=== PATIENT | female | born 1935 | race Caucasian/White ===

== ENCOUNTER 2018-07-07 13:50 | Inpatient (IN) | payer MEDICARE ==
[~2018-07-07] VITALS: Ht 165.1 cm; Wt 90.3 kg
[2018-07-07] VITALS (9 sets, daily range): BP systolic 127–165; BP diastolic 40–80
--- NOTE | ~2018-07-07 | OP ---
PATIENT NAME: ANNE MARIE PAK MEDICAL RECORD: [id number] :37 LOCATION:D.[facility]0 ADMISSION DATE:07/07/18 SURGEON: GALEN EDMOND DO DATE OF OPERATION: 07/08/2018 PROCEDURE PERFORMED: Right rishabh hip arthroplasty. PREOPERATIVE DIAGNOSIS: Displaced right femoral neck fracture. POSTOPERATIVE DIAGNOSIS: Displaced right femoral neck fracture. INDICATIONS: Ms. Pak is an 82-year-old female who fell yesterday in a parking lot at [employer] avoiding a wasp sting. She fell onto her right side and sustained a right hip fracture. She was seen in the ER. I saw her there and explained to her the risks and benefits of doing nothing versus a rishabh hip arthroplasty. She was more excited about doing the rishabh hip arthroplasty than nothing. She was informed of the risks of infection, bleeding, fracture of the femur, need for further surgery, and even . 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 She is on Coumadin, which was reversed with vitamin K and fresh frozen plasma and I told her the risk would be elevated due to the fact she had hip surgery. The patient was aware of all those risks and benefits and consented to the procedure. SURGEON: Galen Edmond DO DESCRIPTION OF PROCEDURE: The patient was taken to the operative suite, laid in supine position, given general anesthetic, given 2 grams Ancef preoperatively and the patient was placed onto the [place] table. The right hip was prepped and draped in sterile fashion. Timeout was performed, everyone was in agreement with the correct side, site, patient and procedure. Once this was done and prep and drape, incision began over the tensor fascia dhara muscle and dissection was down to the tensor fascia dhara fascia. This was divided. The fascia was taken anterior, the muscle belly posteriorly and then the junction in the next layer down to the rectus was opened through the fascia and the rectus was taken medially, tensor fascia dhara laterally. The ascending branch of lateral femoral circumflex was then tied off and coagulated with the Aquamantys and then cut, it was not bleeding. The Aquamantys was used to coagulate any vessels of any bleeding throughout this whole case. The neck of the femur was then exposed with Homans on either side of it and the capsule was opened up. Blood from the fracture was then suctioned out of the wound. Once the capsule was opened, it was tagged and then a neck cut was made. Once the Homans removed inside the capsule around the neck, neck cut was made and the femoral head was removed. Ligamentum teres was then removed and coagulated with an Aquamantys. The head size was 47. The femur was then exposed and a canal finder was used and the cookie cutter was used to open the canal. Once broaching began due to the body habitus, I had to do with the smaller stems of a taper lock. We broached up to a 13, trialed a -3 neck. This seemed to be a touch long on the x-ray. We put the 13 stem down and then trialed a -6, seemed to fit very well and be equal lengths with the other side on the x-ray. This was then removed and the actual implant was put into place. Irrigation was done thoroughly throughout the procedure with normal saline with Ancef. The capsule was then closed and the vancomycin powder was put into the deep wound as well as Surgicel beads. Then, the tensor fascia dhara fascia was closed with [id number] and running locking stitch with #1 Vicryl and again vancomycin powder and Surgicel beads were placed in that layer. The skin was then closed. This was after being OPERATIVE REPORT [id number] ANNE MARIE PAK irrigated. The skin was then closed with 2-0 Vicryl and 4-0 Monocryl ran on the skin and then Prineo Dermabond dressing was placed on the skin with Telfa and Tegaderm on the skin on the Prineo. The patient was then awakened and taken to recovery in stable condition. Blood loss was 200 mL approximately. Complications were none. TRANSINT:[id number] Voice Confirmation ID: [id number] DOCUMENT ID: [id number] GALEN EDMOND DO at 0722 CC: [id number] DICTATION DATE: 07/08/18 1649 NUCLEAR REACTOR OPERATOR: 07/09/18 0123 [facility] IN [facility] [address] [id number]
[2018-07-07] MEDS ORDERED: COUMADIN3 MG PO (13:57)
[2018-07-07] MEDS ORDERED: HYDROCHLOROTH12.5 M1 PO (14:01)
[2018-07-07] MEDS ORDERED: OXYBUTYNIN CHLOR5 MG PO (14:01)
[2018-07-07] MEDS ORDERED: MOBIC7.5 MG PO (14:01)
[2018-07-07] MEDS ORDERED: DESERYL50 M2 PO (14:01)
[2018-07-07] MEDS ORDERED: PROZAC40 MG PO (14:01)
[2018-07-07] MEDS ORDERED: FOLATE0.4 MG PO (14:01)
[2018-07-07] MEDS ORDERED: ZOCOR40 MG PO (14:02)
[2018-07-07 16:07] LABS: BASOPHILS 0.1 % (0-2); EOSINOPHILS 0.3 % (0-7); HEMOGLOBIN 14.9 g/dL (12-16); IMMATURE GRANULOCYTES 0.3 % (0-5); LYMPHOCYTES 3.8 % (15-50); MCH 31.2 pg (26.0-34.0); MCHC 32.4 g/dL (31.0-37.0); MCV 96.2 fL (80.0-100.0); MEAN PLATELET VOLUME 10.2 fL (7.4-10.4); MONOCYTES 3.9 % (2-11); NEUTROPHILS 91.6 % (40-80); RBC 4.78 10x6/uL (4.00-5.40); RDW 14.9 % (11.5-14.5); WBC 18.2 10x3/uL (4.8-10.8)
[2018-07-07 16:09] LABS: PLATELET COUNT 227 10x3/uL (130-400)
[2018-07-07 16:19] LABS: INR 1.73 (0.85-1.17); PROTIME 19.7 SECONDS (11.6-15.0)
[2018-07-07 16:25] LABS: ALBUMIN 2.9 g/dL (3.4-5.0); ANION GAP 10.3 mmol/L (8-16); BILIRUBIN - TOTAL 0.3 mg/dL (0.2-1.3); CALCIUM 8.9 mg/dL (8.5-10.1); CARBON DIOXIDE 31.7 mmol/L (21.0-32.0); CREATININE - SERUM 1.3 mg/dL (0.6-1.3); PROTEIN - SERUM 7.1 g/dL (6.4-8.2)
[2018-07-08] VITALS (11 sets, daily range): BP systolic 103–136; BP diastolic 40–72; BMI 33.3
[2018-07-08 06:52] LABS: INR 1.79 (0.85-1.17); PROTIME 20.3 SECONDS (11.6-15.0)
[2018-07-08 12:00] LABS: INR 1.48 (0.85-1.17); PROTIME 17.4 SECONDS (11.6-15.0)
[2018-07-09 00:15] VITALS: BP 118/67
[2018-07-09 04:44] VITALS: BP 129/66
[2018-07-09 07:12] LABS: ANION GAP 13.5 mmol/L (8-16); CARBON DIOXIDE 24.5 mmol/L (21.0-32.0); CREATININE - SERUM 1.3 mg/dL (0.6-1.3)
[2018-07-09 07:17] LABS: BASOPHILS 0.2 % (0-2); EOSINOPHILS 1.1 % (0-7); IMMATURE GRANULOCYTES 0.3 % (0-5); LYMPHOCYTES 6.7 % (15-50); MCH 30.5 pg (26.0-34.0); MCHC 31.4 g/dL (31.0-37.0); MCV 97.4 fL (80.0-100.0); MEAN PLATELET VOLUME 10.4 fL (7.4-10.4); MONOCYTES 5.1 % (2-11); NEUTROPHILS 86.6 % (40-80); RDW 15.5 % (11.5-14.5)
[2018-07-09 07:18] LABS: HEMOGLOBIN 11.6 g/dL (12-16); PLATELET COUNT 159 10x3/uL (130-400); WBC 10.9 10x3/uL (4.8-10.8)
[2018-07-09 07:31] LABS: CALCIUM 6.9 mg/dL (8.5-10.1)
[2018-07-09 08:08] VITALS: BP 110/61
[2018-07-09 12:12] VITALS: BP 116/45
[2018-07-09 12:28] VITALS: Ht 165.1 cm; Wt 90.3 kg
[2018-07-09 16:30] VITALS: BP 112/50
[2018-07-09 20:00] VITALS: BP 128/56
[2018-07-10] VITALS: BP 127/66
[2018-07-10 04:00] VITALS: BP 131/67
[2018-07-10 04:29] LABS: BASOPHILS 0.3 % (0-2); EOSINOPHILS 1.3 % (0-7); HEMATOCRIT 36.3 % (36.0-48.0); HEMOGLOBIN 11.7 g/dL (12-16); IMMATURE GRANULOCYTES 0.5 % (0-5); MCHC 32.2 g/dL (31.0-37.0); MCV 96.3 fL (80.0-100.0); MEAN PLATELET VOLUME 10.4 fL (7.4-10.4); MONOCYTES 6.4 % (2-11); NEUTROPHILS 84.5 % (40-80); PLATELET COUNT 149 10x3/uL (130-400); RBC 3.77 10x6/uL (4.00-5.40); RDW 15.3 % (11.5-14.5)
[2018-07-10 04:49] LABS: ANION GAP 9.4 mmol/L (8-16); CALCIUM 7.5 mg/dL (8.5-10.1); CARBON DIOXIDE 27.4 mmol/L (21.0-32.0); CREATININE - SERUM 1.2 mg/dL (0.6-1.3); POTASSIUM - SERUM 3.8 mmol/L (3.5-5.1)
[2018-07-10 09:39] VITALS: BP 122/66
[2018-07-10 12:48] VITALS: BP 112/52
[2018-07-10 16:48] VITALS: BP 135/61
[2018-07-10 20:00] VITALS: BP 121/57
[2018-07-11] VITALS: BP 154/71
[2018-07-11 04:00] VITALS: BP 139/77
[2018-07-11 07:33] LABS: BASOPHILS 0.3 % (0-2); EOSINOPHILS 0.7 % (0-7); HEMATOCRIT 33.2 % (36.0-48.0); HEMOGLOBIN 10.8 g/dL (12-16); IMMATURE GRANULOCYTES 0.3 % (0-5); LYMPHOCYTES 5.9 % (15-50); MCH 30.3 pg (26.0-34.0); MCHC 32.5 g/dL (31.0-37.0); MEAN PLATELET VOLUME 10.7 fL (7.4-10.4); MONOCYTES 6.5 % (2-11); NEUTROPHILS 86.3 % (40-80); RBC 3.57 10x6/uL (4.00-5.40); RDW 15.1 % (11.5-14.5); WBC 9.8 10x3/uL (4.8-10.8)
[2018-07-11 07:49] LABS: PLATELET COUNT 186 10x3/uL (130-400)
[2018-07-11 07:55] LABS: INR 1.16 (0.85-1.17); PROTIME 14.4 SECONDS (11.6-15.0)
[2018-07-11 07:57] LABS: ANION GAP 10.7 mmol/L (8-16); CARBON DIOXIDE 25.1 mmol/L (21.0-32.0); POTASSIUM - SERUM 3.8 mmol/L (3.5-5.1)
[2018-07-11 08:46] VITALS: BP 118/63
[2018-07-11 12:48] VITALS: BP 130/46
[2018-07-11] MEDS ORDERED: COUMADIN4 MG PO (14:30)
[2018-07-11] MEDS ORDERED: LOVENOX40 MG/0.4 SC (14:30)
[2018-07-11] MEDS ORDERED: IPRAT-ALBUT 0.5-3 ML UPD (14:30)
== END 2018-07-11 16:35 | DRG 470 ==
LOC: D.ER 13:50 → D.MS 15:54 → D.EDHOLD 15:54 → D.MS 18:50
PROVIDERS: Emergency Medicine; Internal Medicine Nephrology; Legal Medicine; Orthopaedic Surgery
PROC: 0SRR0JZ Replacement of Right Hip Joint, Femoral Surface with Synthetic Substitute, Open Approach (ICD-10-PCS; principal; 2018-07-08 08:00)
DX: S72.001A Fracture of unspecified part of neck of right femur, initial encounter for closed fracture (principal); N17.9 Acute kidney failure, unspecified; W18.30XA Fall on same level, unspecified, initial encounter; Y92.481 Parking lot as the place of occurrence of the external cause; J02.9 Acute pharyngitis, unspecified; Z87.891 Personal history of nicotine dependence

== ENCOUNTER 2018-07-11 16:24 | Inpatient (IN) | payer MEDICARE ==
[~2018-07-11] VITALS: Ht 165.1 cm; Wt 90.7 kg
--- NOTE | ~2018-07-11 | RHP ---
PATIENT: ANNE MARIE PAK MEDICAL RECORD: [id number] ACCOUNT: [id number] LOCATION:[facility] John1111 : 37 ADMISSION DATE: 07/11/18 REHABILITATION HISTORY AND PHYSICAL EXAMINATION POST ADMISSION PHYSICIAN EXAMINATION DATE OF ADMISSION: 07/11/2018. ADMITTING DIAGNOSIS: Displaced right femoral neck fracture. HISTORY OF PRESENT ILLNESS: The patient is an 82-year-old female patient admitted to the inpatient rehab with a displaced right femoral neck fracture after a fall. She states on 07/07/2018, she was in the parking lot at [employer], avoiding a wasp. She fell on her right side, had immediate pain and inability to ambulate. She was brought to the Emergency Room. Her right lower extremity was shortened and externally rotated, misaligned, decreased range of motion and functional deficit was noted. She does take a blood thinner for clotting disorder. Other than that she does not have any other medical problems. X-rays showed a right femoral neck fracture. INR was 1.73, so her Coumadin was held. 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 On 07/08/2018, she went to the OR for a right irshabh hip arthroscopy. Previously, she was living alone, was independent with ADLs and mobility, using O2 only at night. Her postop has been complicated by confusion, disorientation, elevated temperature with a T-max of 100.9, hypoxia with a sat of 81% to 90% while on 6 liters of O2. Currently, she has been started back on her Coumadin. She continues to have Lovenox bridging at this time until INR is therapeutic. She was titrated down to 2-1/2 to 3 liters of O2 with sats of 93%. She is afebrile. She has worked with PT and OT, has ambulated 4 feet with 45% assist. She tires easily, has good balance. BARRIERS TO DISCHARGE: She lives alone. She has increased O2 needs, anticoagulation for bridging from her Lovenox to her Coumadin until INR is therapeutic and she has been having some intermittent confusion and disorientation, worse at night. COMORBIDITIES: In this patient include status post a right hemiarthroscopy, clotting disorder, long-term use of anticoagulants, coagulopathy, acute kidney injury, fall, postop fever, postop hypoxia, dyspnea on exertion, functional deficit, postop confusion, weakness, urinary incontinence, sore throat, depression, osteopenia, and osteoarthritis. PAST MEDICAL HISTORY: Significant for basically just tobacco use. PAST SURGICAL HISTORY: Includes a knee replacement, now hip replacement. ALLERGIES: No known drug allergies. CURRENT MEDICATIONS: Include albuterol updrafts. She is on Coumadin 8 mg daily, Zocor 40 mg daily, oxybutynin 10 mg daily, Meloxicam 7.5 mg daily, hydrochlorothiazide 12.5 mg daily, folic acid 1 mg daily, Prozac 40 mg daily, enoxaparin 40 mg daily, and Desyrel 50 mg q.h.s. HABITS: Does have a history of tobacco use. FAMILY HISTORY: Noncontributory. HISTORY AND PHYSICAL [id number] ANNE MARIE PAK SOCIAL HISTORY: The patient hopes to return back home and get back to her prior level of functioning. REVIEW OF SYSTEMS: GENERAL: Does complain of some weakness. PSYCHIATRIC: Denies cold, cough, or congestion. CARDIOVASCULAR: Denies chest pain. PHYSICAL EXAMINATION: VITAL SIGNS: Stable, afebrile. GENERAL: A somewhat obese female, in no distress upon exam. HEENT: Normocephalic and atraumatic. Mucosa moist. NECK: Supple. No lymphadenopathy. LUNGS: Clear at this time. HEART: Regular rate and rhythm. ABDOMEN: Benign. EXTREMITIES: No clubbing, cyanosis or edema. NEUROLOGIC: She seems intact. She does have some noted weakness. Her CBC and her chemistries and coagulopathy are all pending at this time. ASSESSMENT: This is an 82-year-old female patient admitted to the rehab with a working diagnosis of right hip fracture. She is status post hemiarthroscopy. The patient has potential to make improvement. We instituted the following multidisciplinary therapies including, but not limited to physical, occupational, respiratory, speech, nutritional services, prosthetics and orthotics. Given her current medical condition, risk of further medical complications, rehabilitative services cannot be provided at a low level of care such as alf facility. PLAN: 1. Admit to [facility] rehab for intensive inpatient therapy to include the following disciplines: A. Physical therapy to improve gait, all transfer skills and bed mobility to a modified independent level. B. Occupational therapy to improve activities of daily living to a modified independent level. C. Case management to assist with discharge planning and placement options. D. Nutrition to assist with nutritional needs. E. Rehabilitation nursing to assist in monitoring the patient's underlying medical conditions and to assist with any type of bowel or bladder management. 2. The patient's current medication and medical care will be continued. 3. The patient will be placed on standard fall precautions. 4. The patient's estimated length of stay is approximately 7-10 days. 5. We will watch her INR and bleeding times closely. We will bridge her as necessary and will follow up again in the a.m. TRANSINT:[id number] Voice Confirmation ID: [id number] DOCUMENT ID: [id number] CONNIE notes whether there has been none or any medical/functional change since admission: - No change since prescreen. HISTORY AND PHYSICAL [id number] ANNE MARIE PAK attests patient continues to be appropriate for IRF: - Continues to be appropriate. SALEEM HECTOR MD at 1244 CC: [id number] DICTATION DATE: 07/12/18909 FUGITIVE DETECTIVE: 07/12/18 1205 ADM IN [facility] [address] [place] [address]
[~2018-07-11 16:24] MED LIST: COUMADIN3 MG PO; COUMADIN4 MG PO; DESERYL50 M2 PO; FOLATE0.4 MG PO; HYDROCHLOROTH12.5 M1 PO; IPRAT-ALBUT 0.5-3 ML UPD; LOVENOX40 MG/0.4 SC; MOBIC7.5 MG PO; OXYBUTYNIN CHLOR5 MG PO; PROZAC40 MG PO; ZOCOR40 MG PO
[2018-07-11 20:31] VITALS: BP 130/57
[2018-07-12 03:09] VITALS: BP 130/57; BMI 33.3
[2018-07-12 08:00] VITALS: BP 90/54
[2018-07-12 09:07] VITALS: BMI 33.2
[2018-07-12 11:11] LABS: BASOPHILS 0.3 % (0-2); EOSINOPHILS 1.8 % (0-7); HEMATOCRIT 33.3 % (36.0-48.0); HEMOGLOBIN 10.9 g/dL (12-16); IMMATURE GRANULOCYTES 0.2 % (0-5); MCH 30.5 pg (26.0-34.0); MCHC 32.7 g/dL (31.0-37.0); MCV 93.3 fL (80.0-100.0); MEAN PLATELET VOLUME 10.1 fL (7.4-10.4); MONOCYTES 5.5 % (2-11); NEUTROPHILS 87.2 % (40-80); PLATELET COUNT 193 10x3/uL (130-400); RBC 3.57 10x6/uL (4.00-5.40); RDW 15.3 % (11.5-14.5); WBC 8.7 10x3/uL (4.8-10.8)
[2018-07-12 11:26] LABS: INR 1.21 (0.85-1.17); PROTIME 14.8 SECONDS (11.6-15.0)
[2018-07-12 11:28] LABS: ANION GAP 9.4 mmol/L (8-16); CALCIUM 8.1 mg/dL (8.5-10.1); CARBON DIOXIDE 27.2 mmol/L (21.0-32.0); CREATININE - SERUM 1.1 mg/dL (0.6-1.3); POTASSIUM - SERUM 3.6 mmol/L (3.5-5.1)
[2018-07-12 19:00] VITALS: BP 128/56
[2018-07-13 07:04] LABS: BASOPHILS 0.1 % (0-2); EOSINOPHILS 0 % (0-7); HEMATOCRIT 31.5 % (36.0-48.0); HEMOGLOBIN 10.2 g/dL (12-16); IMMATURE GRANULOCYTES 0.2 % (0-5); LYMPHOCYTES 4.2 % (15-50); MCH 30.1 pg (26.0-34.0); MCHC 32.4 g/dL (31.0-37.0); MCV 92.9 fL (80.0-100.0); MEAN PLATELET VOLUME 10.4 fL (7.4-10.4); MONOCYTES 4.8 % (2-11); NEUTROPHILS 90.7 % (40-80); PLATELET COUNT 221 10x3/uL (130-400); RBC 3.39 10x6/uL (4.00-5.40); RDW 15.6 % (11.5-14.5); WBC 8.9 10x3/uL (4.8-10.8)
[2018-07-13 07:20] LABS: INR 1.23 (0.85-1.17); PROTIME 15.1 SECONDS (11.6-15.0)
[2018-07-13 07:26] LABS: ANION GAP 11.9 mmol/L (8-16); CALCIUM 8.3 mg/dL (8.5-10.1); CARBON DIOXIDE 27.3 mmol/L (21.0-32.0)
[2018-07-13 07:28] LABS: POTASSIUM - SERUM 4.2 mmol/L (3.5-5.1)
[2018-07-13 08:00] VITALS: BP 133/74
[2018-07-13 10:32] VITALS: Ht 165.1 cm; Wt 90.7 kg
[2018-07-13 19:00] VITALS: BP 144/61
[2018-07-14 05:11] LABS: INR 1.66 (0.85-1.17); PROTIME 19.1 SECONDS (11.6-15.0)
[2018-07-14 19:35] VITALS: BP 150/71
[2018-07-15 05:57] LABS: BASOPHILS 0.1 % (0-2); EOSINOPHILS 0.1 % (0-7); HEMATOCRIT 32.3 % (36.0-48.0); HEMOGLOBIN 10.4 g/dL (12-16); IMMATURE GRANULOCYTES 0.2 % (0-5); LYMPHOCYTES 5.6 % (15-50); MCH 30.1 pg (26.0-34.0); MCHC 32.2 g/dL (31.0-37.0); MCV 93.6 fL (80.0-100.0); MEAN PLATELET VOLUME 9.9 fL (7.4-10.4); MONOCYTES 5.5 % (2-11); NEUTROPHILS 88.5 % (40-80); RBC 3.45 10x6/uL (4.00-5.40); RDW 15.7 % (11.5-14.5); WBC 8.7 10x3/uL (4.8-10.8)
[2018-07-15 06:11] LABS: PLATELET COUNT 269 10x3/uL (130-400)
[2018-07-15 06:18] LABS: INR 2.3 (0.85-1.17); PROTIME 24.7 SECONDS (11.6-15.0)
[2018-07-15 08:00] VITALS: BP 180/83
[2018-07-15 19:40] VITALS: BP 137/67
[2018-07-16 06:29] LABS: BASOPHILS 0.3 % (0-2); EOSINOPHILS 0.6 % (0-7); HEMATOCRIT 34.6 % (36.0-48.0); IMMATURE GRANULOCYTES 0.7 % (0-5); LYMPHOCYTES 6.6 % (15-50); MCH 30.1 pg (26.0-34.0); MCHC 31.8 g/dL (31.0-37.0); MCV 94.8 fL (80.0-100.0); NEUTROPHILS 85.8 % (40-80); RBC 3.65 10x6/uL (4.00-5.40); RDW 15.6 % (11.5-14.5); WBC 9.7 10x3/uL (4.8-10.8)
[2018-07-16 06:34] LABS: PLATELET COUNT 324 10x3/uL (130-400)
[2018-07-16 06:38] LABS: ANION GAP 7.9 mmol/L (8-16); CALCIUM 8.6 mg/dL (8.5-10.1); CARBON DIOXIDE 32.8 mmol/L (21.0-32.0); POTASSIUM - SERUM 4.7 mmol/L (3.5-5.1)
[2018-07-16 07:13] LABS: INR 3.02 (0.85-1.17); PROTIME 30.6 SECONDS (11.6-15.0)
[2018-07-16 08:00] VITALS: BP 170/81
[2018-07-16 19:00] VITALS: BP 148/70
[2018-07-17 05:45] LABS: INR 2.87 (0.85-1.17); PROTIME 29.4 SECONDS (11.6-15.0)
[2018-07-17 08:00] VITALS: BP 142/65
[2018-07-17 19:00] VITALS: BP 136/59
[2018-07-18 06:13] LABS: BASOPHILS 0.5 % (0-2); EOSINOPHILS 2.3 % (0-7); HEMATOCRIT 37.3 % (36.0-48.0); HEMOGLOBIN 11.9 g/dL (12-16); IMMATURE GRANULOCYTES 1.1 % (0-5); LYMPHOCYTES 11.1 % (15-50); MCH 30.4 pg (26.0-34.0); MCHC 31.9 g/dL (31.0-37.0); MCV 95.4 fL (80.0-100.0); PLATELET COUNT 373 10x3/uL (130-400); RBC 3.91 10x6/uL (4.00-5.40); WBC 7.8 10x3/uL (4.8-10.8)
[2018-07-18 06:16] LABS: INR 2.55 (0.85-1.17); PROTIME 26.7 SECONDS (11.6-15.0)
[2018-07-18 06:26] LABS: ANION GAP 9.9 mmol/L (8-16); CALCIUM 8.9 mg/dL (8.5-10.1); CARBON DIOXIDE 32.8 mmol/L (21.0-32.0); CREATININE - SERUM 1.1 mg/dL (0.6-1.3); POTASSIUM - SERUM 4.7 mmol/L (3.5-5.1)
[2018-07-18 08:00] VITALS: BP 156/76
[2018-07-18 20:00] VITALS: BP 111/52
[2018-07-19 08:31] LABS: INR 2.8 (0.85-1.17); PROTIME 28.8 SECONDS (11.6-15.0)
[2018-07-19 11:35] VITALS: BP 157/71
[2018-07-19 19:00] VITALS: BP 126/51
[2018-07-20 05:23] LABS: BASOPHILS 0.5 % (0-2); EOSINOPHILS 2.4 % (0-7); HEMATOCRIT 34.4 % (36.0-48.0); IMMATURE GRANULOCYTES 0.8 % (0-5); LYMPHOCYTES 11.5 % (15-50); MCH 30.3 pg (26.0-34.0); MCV 94.8 fL (80.0-100.0); MEAN PLATELET VOLUME 9.6 fL (7.4-10.4); MONOCYTES 5.7 % (2-11); NEUTROPHILS 79.1 % (40-80); PLATELET COUNT 335 10x3/uL (130-400); RBC 3.63 10x6/uL (4.00-5.40); RDW 15.9 % (11.5-14.5); WBC 7.8 10x3/uL (4.8-10.8)
[2018-07-20 05:32] LABS: INR 3.02 (0.85-1.17); PROTIME 30.6 SECONDS (11.6-15.0)
[2018-07-20 05:35] LABS: ANION GAP 11.6 mmol/L (8-16); CALCIUM 8.6 mg/dL (8.5-10.1); CARBON DIOXIDE 28.5 mmol/L (21.0-32.0); CREATININE - SERUM 1.1 mg/dL (0.6-1.3); POTASSIUM - SERUM 4.1 mmol/L (3.5-5.1)
[2018-07-20 08:24] VITALS: BP 136/61
[2018-07-20 19:24] VITALS: BP 107/59
[2018-07-21 05:53] LABS: INR 2.7 (0.85-1.17)
[2018-07-21 07:31] VITALS: BP 123/63
[2018-07-21 19:29] VITALS: BP 132/78
[2018-07-22 06:19] LABS: INR 2.86 (0.85-1.17); PROTIME 29.3 SECONDS (11.6-15.0)
[2018-07-22 08:16] VITALS: BP 120/60
[2018-07-22 19:10] VITALS: BP 121/60
[2018-07-23 07:13] LABS: BASOPHILS 0.6 % (0-2); EOSINOPHILS 1.8 % (0-7); HEMATOCRIT 34.8 % (36.0-48.0); IMMATURE GRANULOCYTES 0.3 % (0-5); LYMPHOCYTES 12.8 % (15-50); MCH 30.2 pg (26.0-34.0); MCHC 31.6 g/dL (31.0-37.0); MCV 95.6 fL (80.0-100.0); MONOCYTES 8.3 % (2-11); NEUTROPHILS 76.2 % (40-80); RBC 3.64 10x6/uL (4.00-5.40); RDW 15.8 % (11.5-14.5)
[2018-07-23 07:26] LABS: PLATELET COUNT 403 10x3/uL (130-400)
[2018-07-23 07:32] LABS: ANION GAP 13.3 mmol/L (8-16); CALCIUM 8.8 mg/dL (8.5-10.1); CARBON DIOXIDE 28.7 mmol/L (21.0-32.0)
[2018-07-23 07:58] VITALS: BP 135/63
[2018-07-23 19:00] VITALS: BP 116/61
[2018-07-24 08:00] VITALS: BP 107/54
[2018-07-24 19:00] VITALS: BP 90/59
[2018-07-25 06:32] LABS: ANION GAP 9.7 mmol/L (8-16); CALCIUM 8.4 mg/dL (8.5-10.1); CARBON DIOXIDE 30.4 mmol/L (21.0-32.0); CREATININE - SERUM 1.1 mg/dL (0.6-1.3); POTASSIUM - SERUM 4.1 mmol/L (3.5-5.1)
[2018-07-25 06:57] LABS: INR 2.39 (0.85-1.17); PROTIME 25.4 SECONDS (11.6-15.0)
[2018-07-25 07:04] LABS: BASOPHILS 0.6 % (0-2); EOSINOPHILS 1.4 % (0-7); HEMATOCRIT 35.4 % (36.0-48.0); HEMOGLOBIN 11.1 g/dL (12-16); IMMATURE GRANULOCYTES 0.3 % (0-5); LYMPHOCYTES 13.8 % (15-50); MCH 30.1 pg (26.0-34.0); MCHC 31.4 g/dL (31.0-37.0); MCV 95.9 fL (80.0-100.0); MEAN PLATELET VOLUME 9.9 fL (7.4-10.4); NEUTROPHILS 74.9 % (40-80); PLATELET COUNT 381 10x3/uL (130-400); RBC 3.69 10x6/uL (4.00-5.40); RDW 15.6 % (11.5-14.5); WBC 7.2 10x3/uL (4.8-10.8)
[2018-07-25 08:00] VITALS: BP 117/60
[2018-07-25 19:00] VITALS: BP 112/56
[2018-07-26 08:00] VITALS: BP 121/58
[2018-07-26] MEDS ORDERED: COUMADIN5 MG PO (09:03)
[2018-07-26] MEDS ORDERED: HYDROCODON-ACE1 EAC7 PO (09:03)
== END 2018-07-26 18:52 | disposition home health service (06) | DRG 560 ==
LOC: D.REHAB 16:24
PROVIDERS: Emergency Medicine
DX: S72.001D Fracture of unspecified part of neck of right femur, subsequent encounter for closed fracture with routine healing (principal); D68.9 Coagulation defect, unspecified; N17.9 Acute kidney failure, unspecified; M96.89 Other intraoperative and postprocedural complications and disorders of the musculoskeletal system; W19.XXXD Unspecified fall, subsequent encounter; Z79.01 Long term (current) use of anticoagulants; R32 Unspecified urinary incontinence; F32.9 Major depressive disorder, single episode, unspecified; R53.1 Weakness; M85.80 Other specified disorders of bone density and structure, unspecified site; M19.90 Unspecified osteoarthritis, unspecified site; R06.00 Dyspnea, unspecified; Z96.641 Presence of right artificial hip joint

== ENCOUNTER → 2018-09-03 15:24 | Outpatient (CLI) | payer MEDICARE ==
[2018-07-13 10:32] VITALS: BMI 33.2
[~2018-09-03 15:24] MED LIST changes: +COUMADIN5 MG PO; +HYDROCODON-ACE1 EAC7 PO
== END | disposition home or self-care (01) ==
LOC: D.US 15:24
DX: R22.41 Localized swelling, mass and lump, right lower limb (principal)

== ENCOUNTER → 2018-09-10 17:22 | Outpatient (CLI) | payer MEDICARE ==
[2018-07-13 10:32] VITALS: BMI 33.2
== END | disposition home or self-care (01) ==
LOC: D.LABREF 17:22
DX: R22.41 Localized swelling, mass and lump, right lower limb (principal)

== ENCOUNTER 2019-07-01 05:07 | Inpatient (IN) | payer MEDICARE ==
[~2019-07-01] VITALS: Ht 165.1 cm; Wt 99.8 kg
--- NOTE | ~2019-07-01 | HEMODYNAMI ---
PATIENT:ANNE MARIE PAK MEDICAL RECORD: [id number] : 37 LOCATION:[facility] D.2219 ADMISSION DATE: 07/02/19 Generatedon:07/10/201916:33 Patient name: ANNE MARIE PAK Patient #: [id number] SSN: : 1935 Date of study: 07/10/2019 Page: Of Hemodynamic Procedure Report Patient Data Patient Demographics Procedure consent was obtained First Name: ANNE MARIE Gender: Female Last Name: PASHA : 1935 Patient #: [id number] Age: 83 year(s) Race: Unknown Additional ID: [id number] Contact details Address: [address] [place] [address] [address] State: [place] City: [facility] Zip code: [address] Past Medical History Allergies: No known allergies Admission Admission Data Admission Date: 07/02/2019 Admission Time: 14:52 Room #: .2219 Height (in.): 65 BSA: 2.06 (m2) Height (cm.): 165.1 BMI: 36.44 (kg/m2) Weight (lbs.): 219 Weight (kg.): 99.34 Procedure Procedure Types Cath Procedure Peripheral Cath Diagnostic Procedure Electrical Experimental Mechanic Peripheral Procedures Kyphoplasty Kyphoplasty Thoracic Procedure Description Procedure Date Procedure Date: 07/10/2019 Procedure Start Time: 15:18 Procedure Staff Name Function Melanie James RT Hot Tar Roofer Jordon Spear RT Scrub Marlo Paz Additional personnel Seth Tolentino MD Performing Physician Leigh Olivares RN Nurse Lilibeth Ugalde RN Nurse Procedure Data Cath Procedure Fluoroscopy Diagnostic fluoroscopy Total fluoroscopy Time: time: 24.6 min 24.6 min Diagnostic fluoroscopy Total fluoroscopy dose: dose: 2140 mGy 2140 mGy Hemodynamics Rest O2 Consumption: Estimated: 202.25 (ml/min) O2 Consumption indexed: Estimated:98. 18 (ml/min/m) Heart Rate: 94 (bpm) Snapshots Pre Cath Intra NCS Post Cath Vital Signs Time Heart Resp SPO2 etCO2 NIBP (mmHg) Rhythm Pain Sedation Rate (ipm) (%) (mmHg) Status Level (bpm) 14:54:30 98 17.2 No Cuff NSR 0 (11) 10(A) , No pain 14:58:29 98 28.5 No Cuff NSR 0 (11) 10(A) , No pain 15:02:35 97 27.7 113/98(109) NSR 0 (11) 10(A) , No pain 15:07:34 99 24 99 12 Measuring NSR 0 (11) 10(A) , No pain 15:07:57 97 23 99 6.7 170/93(135) NSR 0 (11) 10(A) , No pain 15:12:15 89 21 98 2.9 136/70(89) NSR 0 (11) 10(A) , No pain 15:16:31 84 16 97 5.9 117/58(100) NSR 0 (11) 10(A) , No pain 15:20:43 87 15 96 4.5 100/55(81) NSR 0 (11) 10(A) , No pain 15:24:49 89 14 96 3.7 95/56(80) NSR 0 (11) 10(A) , No pain 15:28:59 88 14 96 1.4 87/49(69) NSR 0 (11) 10(A) , No pain 15:33:06 85 14 96 1.4 84/50(75) NSR 0 (11) 10(A) , No pain 15:35:58 86 14 96 1.4 89/47(65) NSR 0 (11) 10(A) , No pain 15:40:17 85 16 96 7.4 101/55(87) NSR 0 (11) 10(A) , No pain 15:42:23 88 13 95 4.4 94/54(76) NSR 0 (11) 10(A) , No pain 15:44:39 88 13 96 0 75/29(55) NSR 0 (11) 10(A) , No pain 15:46:46 87 13 95 5.2 74/31(61) NSR 0 (11) 10(A) , No pain 15:48:53 88 13 95 0.7 69/27(44) NSR 0 (11) 10(A) , No pain 15:50:58 87 14 95 5.2 82/39(53) NSR 0 (11) 10(A) , No pain 15:53:07 88 12 95 7.4 82/34(61) NSR 0 (11) 10(A) , No pain 15:55:16 89 12 95 8.2 84/39(66) NSR 0 (11) 10(A) , No pain 15:57:25 88 14 95 8.2 82/34(61) NSR 0 (11) 10(A) , No pain 15:59:32 89 13 95 8.9 92/46(64) NSR 0 (11) 10(A) , No pain 16:01:43 90 14 95 8.9 90/42(62) NSR 0 (11) 10(A) , No pain 16:03:56 90 13 95 8.2 84/35(64) NSR 0 (11) 10(A) , No pain 16:06:05 91 13 94 7.4 88/39(63) NSR 0 (11) 10(A) , No pain 16:08:16 91 13 95 5.9 89/36(61) NSR 0 (11) 10(A) , No pain 16:10:27 91 12 94 6.7 87/41(64) NSR 0 (11) 10(A) , No pain 16:12:36 91 13 95 10.4 92/42(59) NSR 0 (11) 10(A) , No pain 16:14:49 91 13 94 8.9 88/39(59) NSR 0 (11) 10(A) , No pain 16:16:56 92 13 93 8.9 99/52(79) NSR 0 (11) 10(A) , No pain 16:19:07 91 13 94 9.7 103/45(78) NSR 0 (11) 10(A) , No pain 16:21:23 93 15 94 11.2 101/46(77) NSR 0 (11) 10(A) , No pain 16:23:34 97 18 94 14.9 105/54(75) NSR 0 (11) 10(A) , No pain 16:26:34 31.4 Measuring NSR 0 (11) 10(A) , No pain 16:27:31 10.4 130/74(96) NSR 0 (11) 10(A) , No pain 16:29:32 14.2 No Cuff NSR 0 (11) 10(A) , No pain 16:31:33 10.4 No Cuff NSR 0 (11) 10(A) , No pain Procedure Log Time Note 14:40:20 Patient Height : 65 inches 14:40:24 Patient Weight : 219 lbs 14:41:16 Use device set IR Diagnostic 14:41:18 Tegaderm 4 x 4 (1626W) opened to sterile field. 14:41:19 Sterile Angiographic Pack opened to sterile field. 14:41:20 Bag Decanter (2002S) opened to sterile field. 14:41:27 - 14:53:09 ECG and BP/O2 sat monitors applied to patient. 14:53:14 Time tracking: Regular hours (M-F 7:00 - 5:00) 14:53:23 Plan of Care:Hemodynamics will remain stable., Cardiac rhythm will remain stable., Comfort level will be maintained., Respiratory function will remain adequate., Patient/ family verbilizes understanding of procedure., Procedure tolerated without complication., Recovers from procedure without complications.. 14:53:32 Patient received from Med/Surg to IR Alert and oriented. Tansferred to table in Supine position. 14:53:35 Signed procedure consent form obtained from patient. 14:53:39 Vital chart was started 15:07:52 Pre-procedure instructions explained to patient. 15:07:53 Pre-op teaching completed and patient verbalized understanding. 15:07:54 Family in waiting room. 15:07:57 Patient NPO since Midnight. 15:08:06 Patient allergic to No known allergies 15:08:11 Is patient on blood thinner?No 15:08:13 - 15:08:41 [facility] 22 gauge IV catheter with D5/.45%NaCl at KVO. 15:08:49 Thoracic area was prepped with dura-prep and draped in sterile fashion 15:08:55 - 15:08:58 Baseline sample Acquired. 15:08:59 Full Disclosure recording started 15:09:00 - 15:17:14 --------ALL STOP TIME OUT------ 15:17:14 Physician arrived 15:17:15 Final Timeout: patient, procedure, and site verified with staff and physician. All members of the team are in agreement. ::41 Fire Safety Assessment: A--An alcohol-based skin anteseptic being used preoperatively., C--Open oxygen or nitrous oxide is being used. 15:18:05 Procedure started. 15:18:11 Local anesthetic to Thoracic area with Lidocaine 1% by Seth Tolentino MD.INITIAL ACCESS ONLY 15:29:09 Sergei BONE BX 13GA kit opened to sterile field. 15:29:21 [place] BONE CEMENT WITH NEEDLE AUTOPLEX Kit opened to sterile field. 16:08:21 SERGEI BNCMNT CURV BALLOON [id number] opened to sterile field. 16:08:32 - 16:23:57 Procedure ended.(Physican Out) 16:31:27 Fluoroscopy time 24.60 minutes. 16:31:32 Fluoroscopy dose: 2140 mGy 16:31:32 Flurop Dose total: 2140 16:31:35 Procedure and supply charges have been captured, reviewed, submitted an d are correct. 16:31:41 Report given to Med/Surg. 16:32:10 Vital chart was stopped 16:32:14 Full Disclosure recording stopped Device Usage Item Name Manufacture Quantity Catalog Hospital Part Current Minim al Lot# / Number Charge Number Stock Stock Serial# Code Tegaderm 4 x 3M 1 1626W [id number] 4 (1626W) Sterile Cardinal 1 [id number] [id number] 5 Angiographic Health Pack Bag Decanter Microtek 1 2001S [id number] 70050 [id number] 5 (2001S) [employer] Sergei BONE Sergei 1 [id number] [id number] [id number] 5 BX 13GA kit Hill[place] BONE Hill[place] 1 [id number] [id number] 5 CEMENT WITH NEEDLE AUTOPLEX Kit SERGEI Sergei 1 [id number] [id number] [id number] 216827 1 BNCMNT CURV BALLOON [id number] Signature Audit [place] Stage Time Signature Unsigned Intra-Procedure 07/10/2019 Melanie James 4:32:07 PM RT(R) [id number] [place] [address]
--- NOTE | 2019-07-01 05:46 | NUR ---
PT LEFT ED VIA STRETCHER FOR CT.
[2019-07-01 06:34] LABS: BASOPHILS 0.3 % (0-2); EOSINOPHILS 0.9 % (0-7); HEMATOCRIT 43.9 % (36.0-48.0); HEMOGLOBIN 14.2 g/dL (12-16); IMMATURE GRANULOCYTES 0.3 % (0-5); LYMPHOCYTES 6.9 % (15-50); MCHC 32.3 g/dL (31.0-37.0); MCV 92.6 fL (80.0-100.0); MEAN PLATELET VOLUME 9.9 fL (7.4-10.4); MONOCYTES 6.2 % (2-11); NEUTROPHILS 85.4 % (40-80); PLATELET COUNT 224 10x3/uL (130-400); RBC 4.74 10x6/uL (4.00-5.40); RDW 14.8 % (11.5-14.5); WBC 11.5 10x3/uL (4.8-10.8)
[2019-07-01 06:41] VITALS: BP 139/89
[2019-07-01 06:52] LABS: ALBUMIN 2.9 g/dL (3.4-5.0); ANION GAP 10.7 mmol/L (8-16); BILIRUBIN - TOTAL 0.36 mg/dL (0.2-1.3); CARBON DIOXIDE 31.2 mmol/L (21.0-32.0); CREATININE - SERUM 1.2 mg/dL (0.6-1.3); POTASSIUM - SERUM 3.9 mmol/L (3.5-5.1); PROTEIN - SERUM 7.2 g/dL (6.4-8.2)
[2019-07-01 07:06] LABS: INR 2.03 (0.85-1.17); PROTIME 22.3 SECONDS (11.6-15.0)
[2019-07-01 07:32] LABS: APPEARANCE SL CLDY (CLEAR); BILIRUBIN NEGATIVE (NEGATIVE); COLOR STRAW (YELLOW); GLUCOSE NEGATIVE (NEGATIVE); KETONE NEGATIVE (NEGATIVE); NITRITE POSITIVE (NEGATIVE); PROTEIN TRACE mg/dL (NEGATIVE); SPECIFIC GRAVITY 1.005 (1.005-1.020); UROBILINOGEN NORMAL (NORMAL)
[2019-07-01 07:33] LABS: BACTERIA MANY /hpf (NEGATIVE); EPITHELIAL CELLS 0-5 /hpf (0-5); MUCUS <1+ /lpf (NONE SEEN); RED CELLS - URINE OCC /hpf (0-5)
--- NOTE | 2019-07-01 10:19 | NUR ---
1018 ROOM ASSIGNMENT RCVD ATTEMPTED X 2 TO CALL REPORT
[2019-07-01 10:20] VITALS: BP 140/82
--- NOTE | 2019-07-01 10:25 | NUR ---
1025 REPORT TO JLUIS CASTANEDA
[2019-07-01 11:35] VITALS: BP 158/79; BMI 36.6
[2019-07-01] MEDS ORDERED: SINGULAIR10 MG PO (11:38)
[2019-07-01] MEDS ORDERED: COUMADIN1 MG PO (11:39)
[2019-07-01] MEDS ORDERED: RESTASIS EMU 0.0 IOC (11:44)
[2019-07-01] MEDS ORDERED: LOTEPREDNOL OP (11:45)
[2019-07-01] MEDS ORDERED: FOLIC ACID1 MG PO (11:46)
[2019-07-01] MEDS ORDERED: MOBIC7.5 MG PO (11:48)
[2019-07-01] MEDS ORDERED: LOW DOSE ASPIRI81 M1 PO (11:48)
[2019-07-01] MEDS ORDERED: CITRACAL + D E1 EACH PO (11:49)
[2019-07-01] MEDS ORDERED: CALCIUM 500 +1 EAC3 PO (11:50)
[2019-07-01] MEDS ORDERED: FISH OIL 1,0001 CA1 PO (11:50)
--- NOTE | 2019-07-01 15:19 | NUR ---
FAMILY IN ROOM. NO NEEDS AT THIS TIME. HAIR WASHED. FRESH LINENS PROVIDED. WATER PROVIDED. CL IN REACH. WCTM
--- NOTE | 2019-07-01 15:31 | NUR ---
75 SR ON TELEMETRY. SCD'S ON.
[2019-07-01 16:27] LABS: MAGNESIUM - SERUM 1.7 mg/dL (1.8-2.4); THYROID STIMULATING HORMONE 0.14 uIU/mL (0.36-3.74)
[2019-07-01 16:52] LABS: CKMB 1.1 U/L (0.0-3.6); CREATINE KINASE 53 UL (21-215); TROPONIN-I 0.018 ng/mL (0.000-0.060)
--- NOTE | 2019-07-01 17:58 | NUR ---
PATIENT SITTING UP IN CHAIR. CL IN REACH. FAMILY AND FRIENDS IN THE ROOM. NO NEEDS AT THIS TIME.
--- NOTE | 2019-07-01 19:45 | NUR ---
PT SITTING UP IN BED WITHOUT DISTRESS, AOX4. FAMILY AT BEDSIDE. SCDS ON. O2 2L/NC. IV RIGHT HAND INFUSING NS @ 50. DENIES NEEDS. CL IN REACH, WILL CTM
[2019-07-01 20:34] VITALS: BP 134/60
[2019-07-01 22:15] LABS: CKMB 1.3 U/L (0.0-3.6); CREATINE KINASE 56 UL (21-215)
[2019-07-01 22:20] LABS: TROPONIN-I < 0.017 ng/mL (0.000-0.060)
[2019-07-02 00:42] VITALS: BP 129/56
[2019-07-02 04:32] LABS: BASOPHILS 0.1 % (0-2); EOSINOPHILS 0.9 % (0-7); HEMOGLOBIN 12.5 g/dL (12-16); IMMATURE GRANULOCYTES 0.3 % (0-5); LYMPHOCYTES 9.5 % (15-50); MCH 29.7 pg (26.0-34.0); MCHC 31.3 g/dL (31.0-37.0); MEAN PLATELET VOLUME 10.2 fL (7.4-10.4); MONOCYTES 10.3 % (2-11); NEUTROPHILS 78.9 % (40-80); PLATELET COUNT 204 10x3/uL (130-400); RBC 4.21 10x6/uL (4.00-5.40); RDW 15.2 % (11.5-14.5)
[2019-07-02 04:42] LABS: WBC 7.4 10x3/uL (4.8-10.8)
[2019-07-02 04:52] VITALS: BP 132/56
[2019-07-02 05:05] LABS: ALBUMIN 2.5 g/dL (3.4-5.0); ALKALINE PHOSPHATASE 101 U/L (46-116); BILIRUBIN - TOTAL 0.33 mg/dL (0.2-1.3); CALC OSMOLALITY 293 mosm/kg (275-300); CALCIUM 7.5 mg/dL (8.5-10.1); CARBON DIOXIDE 30.2 mmol/L (21.0-32.0); CHLORIDE - SERUM 110 mmol/L (98-107); CKMB 0.9 U/L (0.0-3.6); CREATINE KINASE 59 UL (21-215); CREATININE - SERUM 1.3 mg/dL (0.6-1.3); GLUCOSE 108 mg/dL (74-106); POTASSIUM - SERUM 4.4 mmol/L (3.5-5.1); PROTEIN - SERUM 6.4 g/dL (6.4-8.2); SODIUM 146 mmol/L (136-145); UREA NITROGEN 19 mg/dL (7-18); eGFR NON AFRICAN AMERICAN 41 mL/min (90-120)
[2019-07-02 05:07] LABS: ALT (SGPT) 54 U/L (10-68); TROPONIN-I < 0.017 ng/mL (0.000-0.060)
[2019-07-02 07:55] VITALS: BP 135/62
[2019-07-02 11:51] LABS: CKMB 0.6 U/L (0.0-3.6); CREATINE KINASE 60 UL (21-215); TROPONIN-I < 0.017 ng/mL (0.000-0.060)
--- NOTE | 2019-07-02 11:57 | MORECARE ---
CASE MANAGEMENT DISCHARGE SUMMARY PATIENT: ANNE MARIE PAK UNIT: [id number] ADM DATE: 07/01/19 AGE: 83 : 36 SEX: F ROOM/BED: D.2219 AUTHOR: JASKARANDOC PHYSICIAN: REFERRING PHYSICIAN: ALICIA MOHR MD DATE OF SERVICE: 07/02/19 Discharge Plan Patient Name: ANNE MARIE PAK Facility: [facility]:[place] : 1935 Planned Disposition: Inpatient Rehab Anticipated Discharge Date: Discharge Date: Expected LOS: Initial Reviewer: [email or web address] Initial Review Date: 07/01/2019 Generated: 07/02/19 12:57 pm Comments DCP- Discharge Planning Updated by [email or web address]: Rehana Jiménez on 07/02/19 10:[address] Patient Name: ANNE MARIE PAK Admission Status: ER Accout number: [id number] Admission Date: 07-01-2019 : 1935 Admission Diagnosis: Attending: ALICIA MOHR Current LOS: 1 Anticipated DC Date: Planned Disposition: Inpatient Rehab Primary Insurance: MEDICARE A & B late entry @ 0905 Discharge Planning Comments: CM met with patient & son to complete initial dc planning assessment. CM educated patient on the CM role and verbal consent given by patient to complete assessment. Patient lives at home where she is independent with her care. She lives at [facility]. At discharge patient plans to go to inpatient rehab when she is able to come and feels this is a safe discharge. Patient has a walker (that she does not use) BCS, life alert and wears home O2 at night ( [place] home patient) . Her son will be her cdl b driver home at discharge. HURTADO was given and explained to her and her son. Patient denied known discharge needs at this time. CM will continue to follow and will assist as needed with dc plans/needs. Marketing Proposal Specialist: Rehana Jiménez DCPIA - Discharge Planning Initial Assessment Updated by [email or web address]: Rehana Jiménez on 07/02/19 11:52 am * Is the patient Alert and Oriented? Yes * How many steps to enter\exit or inside your home? * PCP [facility] * Pharmacy [facility] * Preadmission Environment Home Alone * ADLs Independent * Equipment Bedside Commode Oxygen Rolling Walker Walker * Other Equipment LIFE ALERT * List name and contact numbers for known caregivers / representatives who currently or will assist patient after discharge: SANJAY MCCORMICK [phone] * Verbal permission to speak to the caregivers and representatives has been obtained from the patient. Yes * Community resources currently utilized None * Additional services required to return to the preadmission environment? Yes * Can the patient safely return to the preadmission environment? No * Has this patient been hospitalized within the prior 30 days at any hospital? No Coverage Notice Reviewer: [email or web address] Tracy Jiménez Notice Issued Date-Time: 07/02/2019 9:05 Notice Type: Medicare Outpatient Observation Notice Notice Delivered To: Patient Relationship to Patient: Tobacco Blender Name: Delivery Method: HAND - Hand Delivered Sofía Days: Prior Verbal Notification: Recipient Understood Notice: Yes Recipient Signature: Yes Med Rec Note Co-signed by Attending: Coverage Notice Comment: Patient Name: ANNE MARIE PAK Page [phone] at 1157 All edits/amendments must be made on the electronic document DICTATION DATE: 07/02/19 1157 RAILROAD DETECTIVE: RICKI 07/02/19 1157 RPT#: [id number] DC DATE: STATUS: ADM IN [facility] [address] [place] [address] END OF REPORT
[2019-07-02 12:11] VITALS: BP 113/49
--- NOTE | 2019-07-02 16:06 | NUR ---
Rehab Note- Acute Inpatietn Rehab prescreen order received. The patient continues to have an acute work up at this time. Appears to be a good acute rehab candidate. Will follow at this time. Thank you for this referral! Danielle Isaac RN Clinical Liaison, [facility] Rehab
[2019-07-02 16:09] VITALS: BMI 36.6
[2019-07-02 19:07] VITALS: BP 138/68
--- NOTE | 2019-07-02 20:00 | NUR ---
PT SITTING UP IN BED WITHOUT DISTRESS, AOX4. O2 2L/NC. STATES PAIN 5/10 IN BACK AND HIPS. GAVE ULTRAM ORDERED. SCDS ON. REQUESTED STOOL SOFTENER. SPOKE WITH BRAYAN LEE APN, RECIEVED ORDERS FOR COLACE BID. DENIES OTHER NEEDS. CL IN REACH, WILL CTM
[2019-07-02 20:45] VITALS: BP 134/58
[2019-07-03] VITALS (7 sets, daily range): BP systolic 118–143; BP diastolic 58–70
[2019-07-03 06:08] LABS: BASOPHILS 0.4 % (0-2); EOSINOPHILS 2.1 % (0-7); HEMATOCRIT 37.1 % (36.0-48.0); HEMOGLOBIN 11.5 g/dL (12-16); IMMATURE GRANULOCYTES 0.3 % (0-5); LYMPHOCYTES 9.5 % (15-50); MCH 29.4 pg (26.0-34.0); MCV 94.9 fL (80.0-100.0); MEAN PLATELET VOLUME 10.1 fL (7.4-10.4); NEUTROPHILS 78.7 % (40-80); PLATELET COUNT 191 10x3/uL (130-400); RBC 3.91 10x6/uL (4.00-5.40); RDW 15.3 % (11.5-14.5); WBC 7.6 10x3/uL (4.8-10.8)
[2019-07-03 06:22] LABS: ANION GAP 8.4 mmol/L (8-16); CALCIUM 7.4 mg/dL (8.5-10.1); CARBON DIOXIDE 30.7 mmol/L (21.0-32.0); CREATININE - SERUM 1.2 mg/dL (0.6-1.3); POTASSIUM - SERUM 4.1 mmol/L (3.5-5.1)
--- NOTE | 2019-07-03 07:41 | NUR ---
REC'D IN BED AWAKE AND ALERT TALKING ON CELL PHONE. RESP EVEN AND UNLABORED WITH NO DISTRESS NOTED. CAN EXPRESS NEEDS AND WANTS. NO C/O NOTED OR VOICED. BRUISING NOTED TO NAMRATA EYES WITH SUTURES NOTED TO LEFT SIDE OF FOREHEAD. ASSESSMENT COMPLETED. C/L IN REACH AT BEDSIDE.
[2019-07-04 01:10] VITALS: BP 136/63
[2019-07-04 05:38] LABS: INR 1.31 (0.85-1.17); PROTIME 15.8 SECONDS (11.6-15.0)
[2019-07-04 05:41] LABS: ANION GAP 12.4 mmol/L (8-16); CALCIUM 8.1 mg/dL (8.5-10.1); CARBON DIOXIDE 27.6 mmol/L (21.0-32.0); CREATININE - SERUM 1.1 mg/dL (0.6-1.3)
[2019-07-04 05:56] VITALS: BP 143/82
[2019-07-04 06:14] LABS: HEMATOCRIT 38.5 % (36.0-48.0); MCH 29.6 pg (26.0-34.0); MCHC 31.2 g/dL (31.0-37.0); MCV 95.1 fL (80.0-100.0); MEAN PLATELET VOLUME 10.5 fL (7.4-10.4); PLATELET COUNT 184 10x3/uL (130-400); RBC 4.05 10x6/uL (4.00-5.40); RDW 15.1 % (11.5-14.5); WBC 7.2 10x3/uL (4.8-10.8)
[2019-07-04 06:47] LABS: EOSINOPHILS 2 % (0-7); LYMPHOCYTES 19 % (15-50); MONOCYTES 3 % (2-11); NEUTROPHILS 76 % (40-80); PLATELET ESTIMATE NORMAL
--- NOTE | 2019-07-04 07:38 | NUR ---
ALERT AND ORIENTED. LUNGS CLEAR BILATERALLY IN ALL AVALOS. HEART SOUNDS S1 AND S2 HEARD IN ALL AVALOS. BOWEL SOUNDS ACTIVE X 4. LACERATION TO LEFT EYE. HEMATOMA TO FOREHEAD. FACIAL BRUISING. NO IV ACCESS. REQUESTED AND GIVEN NEW BRIEF. DENIES PAIN. DENIES FURTHER NEEDS. FALL PRECAUTIONS IN PLACE. SCDS IN PLACE. CALL LUTZ AND PERSONAL ITEMS IN REACH. WILL CONTINUE TO MONITOR.
[2019-07-04 08:16] VITALS: BP 151/65
--- NOTE | 2019-07-04 09:14 | EC ---
PATIENT:ANNE MARIE PAK DATE OF SERVICE: 07/01/19 SEX: F MEDICAL RECORD: [id number] DATE OF : 37 LOCATION:D.MS Lopez221 AGE OF PATIENT: 83 ADMISSION DATE: 07/02/19 REFERRING PHYSICIAN: INTERPRETING PHYSICIAN: FLORENTINO FAN MD ECHOCARDIOGRAM REPORT ECHO CHARGES 4 ECHO COMPLETE Date: 07/02/19 CLINICAL DIAGNOSIS: SYNCOPE ECHOCARDIOGRAPHIC MEASUREMENTS (adult normal given) AC root (d.<3.7cm) 3.1 cm LV Septum d (<1.2 cm> 1.5 cm Valve Excursion 1.0 cm LV Septum (systole) 2.0 cm Left Atria (s.<4.0cm> 4.4 cm LVPW d(<1.2cm) 1.5 cm RV (d.<2.3cm) 2.6 cm LVPW (sytole) 2.0 cm LV diastole(<5.6CM) 5.5 cm MV E-F(>70mm/sec) cm LV systole 3.1 cm LVOT Diameter 1.7 cm MV exc.(>10mm) cm Est.ejection fraction (50-75%) % DOPPLER: LVIT cm/sec A 153 cm/sec E 117 cm/sec LA cm/sec RVSP 43.4 mmHg LVOT 119 cm/sec AOP1/2T m/s Asc. Ao 330 cm/sec RVOT 73.0 cm/sec RA cm/sec PA 102 cm/sec AV Gradient Peak 44.0 mmHg AV Mean 25.0 mmHg AV Area 0.8 cm MV Gradient Peak 9.8 mmHg MV Mean 3.0 mmHg MV Area cm COMMENTS: Sleeve Presser Operator: Mirtha HENRIQUEZOE Optical Glass Wet Inspector: 1 Dr. Fan TAPE# PACS Pericardial Effusion N DATE OF SERVICE: 07/02/2019 FINDINGS: 1. Left ventricular chamber size is within normal limits. Left ventricular systolic function is normal at 55%. 2. Left atrium is enlarged at 4.4 cm. Right atrium and right ventricular chamber sizes are as well mildly dilated. 3. Valvular structures: Aortic valve demonstrates moderate calcific aortic stenosis, valve area calculates to 0.8 cm-squared with gradient of 44 mm across the valve. The remaining valvular structures have normal structure and motion. ECHOCARDIOGRAM REPORT [id number] ANNE MARIE PAK 4. Doppler interrogation elsewise reveals moderate tricuspid regurgitation, no other valvular insufficiency or stenosis. Pulmonary systolic pressure is estimated at 44 mmHg. 5. No evidence of pericardial effusion or left ventricular thrombus. TRANSINT:[id number] Voice Confirmation ID: [id number] DOCUMENT ID: [id number] FLORENTINO FAN MD at 0914 CC: [id number] DICTATION DATE: 07/02/19 1332 CEILING INSULATION BLOWER: 07/02/19 1345 ADM IN [place] [id number] [place] [address]
--- NOTE | 2019-07-04 09:14 | CN ---
PATIENT NAME:ANNE MARIE PAK MEDICAL RECORD: [id number] : 37 LOCATION:D.MS Lopez2219 ADMIT DATE: 07/02/19 ACCOUNT: [id number] CONSULTING PHYSICIAN: FLORENTINO BUSTILLO MD REFERRING PHYSICIAN: ALICIA MOHR MD DATE OF CONSULTATION: 07/02/2019 CARDIOLOGY CONSULTATION DIAGNOSES: 1. Syncope. 2. Coumadin anticoagulation. 3. Hyperlipidemia. 4. Murmur. HISTORY OF PRESENT ILLNESS: Mrs. Pak has no previous cardiac history. She had an episode of syncope. This is when she was on the toilet, most likely vasovagal. She did not have any palpitation. She had no chest pain, no chest discomfort. Troponin is normal. EKG is with no ST-T abnormalities. She has had no dysrhythmias on telemetry. She has had no further syncopal or near syncopal episodes. PHYSICAL EXAMINATION: CONSTITUTIONAL/GENERAL APPEARANCE: Well nourished, well developed, appears stated age. EYES: Lids and conjunctivae noninjected. No discharge. No pallor. ENT: Lips within normal limit. No cyanosis. No pallor. NECK: Carotid arteries, bilateral normal upstroke. No bruits. No thrills. No jugular venous pressure or distention. CERVICAL LYMPH NODES: Nontender. Nonenlarged. THYROID: Not enlarged. No nodules. CARDIOVASCULAR: She does have a II/ holosystolic murmur at the left substernal border. RESPIRATORY: Respiratory effort, unlabored. Normal curvature. No thoracic deformity. No chest wall tenderness. Percussion, resonant. Auscultation, clear. No wheezes, no rales, no rhonchi. ABDOMEN: Soft, nondistended, nontender. No abdominal pain, no vomiting and normal appetite. MUSCULOSKELETAL: No joint tenderness, normal gait, normal tone. SKIN: Warm and dry. OVERALL IMPRESSION: 1. Syncope, most likely this is noncardiac in etiology, most likely vasovagal. 2. Murmur. At this time, we will get an echo to define the murmur. No other cardiac workup or treatment is necessary. TRANSINT:[id number] Voice Confirmation ID: [id number] DOCUMENT ID: [id number] CONSULT REPORT [id number] ANNE MARIE PAK JEFFREY MD at 0914 CC: [id number] DICTATION DATE: 07/02/19 1218 EXTENSION PROFESSOR: 07/02/19 1340 ADM IN [facility] [address] [id number]
[2019-07-04 09:49] VITALS: Ht 165.1 cm; Wt 99.8 kg
--- NOTE | 2019-07-04 10:33 | NUR ---
RESTING IN BED. DENIES NEEDS. WILL CONTINUE TO MONITOR.
[2019-07-04 11:52] VITALS: BP 144/63
--- NOTE | 2019-07-04 12:00 | NUR ---
NOTIFIED OF NEED FOR URINE. SPECIMEN CUP IN ROOM. EDUCATION PROVIDED ON CLEANING AREA PRIOR TO URINATION. STATES WILL CALL PRIOR TO URINATION.
[2019-07-04 12:09] LABS: PROTEIN S - FREE 43 % (57-157); PROTEIN S - FUNCTIONAL 35 % (63-140); PROTEIN S - TOTAL 49 % (60-150)
--- NOTE | 2019-07-04 12:36 | NUR ---
BLOOD TRANSFUSION UNIT 1 COMPLETE. VITALS STABLE.
--- NOTE | 2019-07-04 12:40 | NUR ---
BLOOD TRANSFUSION UNIT 2 INITIATED. VITALS STABLE. WILL CONTINUE TO MONITOR.
--- NOTE | 2019-07-04 13:13 | NUR ---
Nutrition follow-up: diet: Regular PO intake ~50% of meals Labs reviewed Wt: 219# Will offer nutritional supplements. RDN following.
--- NOTE | 2019-07-04 13:19 | NUR ---
RESTING IN BED. REQUESTED TO SPEAK TO DR EDMOND. DR MCNAMARA WILL BE AROUND ABOUT 1700 TO SEE PATIENT. PATIENT NOTIFIED. DENIES FURTHER NEEDS. WILL CONTINUE TO MONITOR.
--- NOTE | 2019-07-04 16:27 | NUR ---
OT NOTE: PT COMPLETED BUE AROM EX. PT COMPLETED HAIR GROOMING WITH SET UP. PT ATTEMPTED BED MOB SIDE ROLLING. PT STATED SHE HAS BEEN IN PAIN ALL DAY . NURSING NOTIFIED. DAUGHTER IN LAW AT BEDSIDE. THANK YOU, ANGELINE ROMAN
[2019-07-04 17:17] VITALS: BP 94/70
[2019-07-04 18:42] LABS: APPEARANCE CLEAR (CLEAR); BILIRUBIN NEGATIVE (NEGATIVE); COLOR YELLOW (YELLOW); GLUCOSE NEGATIVE (NEGATIVE); KETONE NEGATIVE (NEGATIVE); NITRITE NEGATIVE (NEGATIVE); PROTEIN NEGATIVE (NEGATIVE); UROBILINOGEN NORMAL (NORMAL)
[2019-07-04 20:00] VITALS: BP 138/73
--- NOTE | 2019-07-04 21:43 | NUR ---
Pt in chair at bedside with son in room. Water and call light i reach. Assisted to BSC. Pt is alert and orented able to voice needs and wants to staff. TSLO brace in place. SCD's in place when assisted back to bed, bed low alarm in place and working.
[2019-07-05] VITALS: BP 148/62
[2019-07-05 04:00] VITALS: BP 149/67
[2019-07-05 06:28] LABS: BASOPHILS 0.3 % (0-2); EOSINOPHILS 2.3 % (0-7); HEMATOCRIT 39.5 % (36.0-48.0); HEMOGLOBIN 11.9 g/dL (12-16); IMMATURE GRANULOCYTES 0.1 % (0-5); MCH 29.2 pg (26.0-34.0); MCHC 30.1 g/dL (31.0-37.0); MEAN PLATELET VOLUME 10.4 fL (7.4-10.4); MONOCYTES 12.7 % (2-11); NEUTROPHILS 72.6 % (40-80); RBC 4.07 10x6/uL (4.00-5.40); RDW 15.1 % (11.5-14.5); WBC 6.9 10x3/uL (4.8-10.8)
[2019-07-05 06:34] LABS: MCV 97.1 fL (80.0-100.0); PLATELET COUNT 229 10x3/uL (130-400)
[2019-07-05 06:38] LABS: INR 1.17 (0.85-1.17); PROTIME 14.3 SECONDS (11.6-15.0)
[2019-07-05 06:46] LABS: CALCIUM 8.1 mg/dL (8.5-10.1); CARBON DIOXIDE 31.6 mmol/L (21.0-32.0); POTASSIUM - SERUM 4.6 mmol/L (3.5-5.1)
--- NOTE | 2019-07-05 07:15 | NUR ---
PATIENT RECIEVED FROM PREVIOUS SHIFT RESTING IN BED, EYES CLOSED, AROUSED EASILY. REPORTS LUMBAR PAIN OF 7, BACK BRACE IN PLACE. CL IN REACH
[2019-07-05 08:47] VITALS: BP 134/65
[2019-07-05 13:38] VITALS: BP 128/49
[2019-07-05 16:45] VITALS: BP 143/62
[2019-07-05 20:00] VITALS: BP 144/63
[2019-07-06] VITALS: BP 144/63
[2019-07-06 03:07] LABS: PROTEIN C - ANTIGEN 50 % (60-150); PROTEIN C - FUNCTIONAL 42 % (73-180)
[2019-07-06 04:00] VITALS: BP 129/69
[2019-07-06 06:45] LABS: BASOPHILS 0.2 % (0-2); HEMATOCRIT 37.7 % (36.0-48.0); HEMOGLOBIN 11.6 g/dL (12-16); IMMATURE GRANULOCYTES 0.2 % (0-5); LYMPHOCYTES 8.5 % (15-50); MCH 29.4 pg (26.0-34.0); MCHC 30.8 g/dL (31.0-37.0); MCV 95.7 fL (80.0-100.0); MEAN PLATELET VOLUME 10.1 fL (7.4-10.4); MONOCYTES 11.4 % (2-11); NEUTROPHILS 77.7 % (40-80); PLATELET COUNT 241 10x3/uL (130-400); RBC 3.94 10x6/uL (4.00-5.40); RDW 14.9 % (11.5-14.5); WBC 8.1 10x3/uL (4.8-10.8)
[2019-07-06 06:56] LABS: INR 1.1 (0.85-1.17); PROTIME 13.7 SECONDS (11.6-15.0)
[2019-07-06 06:58] LABS: ANION GAP 10.2 mmol/L (8-16); CARBON DIOXIDE 32.6 mmol/L (21.0-32.0); CREATININE - SERUM 1.1 mg/dL (0.6-1.3); POTASSIUM - SERUM 4.8 mmol/L (3.5-5.1)
--- NOTE | 2019-07-06 08:00 | NUR ---
PATIENT UP IN BED WITH NO COMPLAINTS. FAMILY AT BEDSIDE. CALL LIGHT WITHIN REACH.
[2019-07-06 08:46] VITALS: BP 108/66
--- NOTE | 2019-07-06 09:00 | NUR ---
SPOKE WITH LIANA ABOUT TELE MONITOR FOR JOHANA. EXPLAINED HAD BEEN ORDERED FOR HIM. SAID SHE ONLY HAD A FEW LEFT AT THIS TIME AND HAD A LOT OF PCU BEDS OPEN. TO CALL BACK THIS EVENING.
--- NOTE | 2019-07-06 09:00 | NUR ---
PATIENT BACK TO BED. STATED SHE IS HURTING TO BAD. WILL GIVE MEDS ACCORDINGLY.
--- NOTE | 2019-07-06 10:15 | NUR ---
PATIENT RECIEVED ROBAXIN ORDERED.
--- NOTE | 2019-07-06 11:30 | NUR ---
IV PLACED BY ICU NURSE AT THIS TIME. DILAUDID BACON DE RINDER SET UP. PATIENT RECIEVED MAG CITRATE, MIRALX, STOOL SOFTENER FOR BM. PATIENT DOESNT WANT SUPPOSITORY TILL LATER.
[2019-07-06 13:54] VITALS: BP 131/84
--- NOTE | 2019-07-06 15:00 | NUR ---
PATIENT IN BED WITH IV INTACT. STATES FEELS BETTER WITH PAIN. FAMILY AT BEDSIDE. CALL LIGHT WITHIN REACH.
[2019-07-06 16:47] VITALS: BP 134/57
--- NOTE | 2019-07-06 17:45 | NUR ---
PATIENT RECIEVED SUPPOSITORY PER SONS REQUEST.
--- NOTE | 2019-07-06 18:15 | NUR ---
PATIENT IN BED WITH EYES CLOSED SLEEPING. IV INTACT. PATIENT SON WANTS DR. MOHR TO SWITCH ABX TO LEVAQUIN BECAUSE HE THINKS ITS A BETTER ANTIBIOTIC. EXPLAINED THAT HE WOULD HAVE TO TALK TO HIM. TRIED TO CALL. NO ANSWER AT THIS TIME. CALLED RESPIRATORY FOR PATIENT BREATHING TREATMENT.
[2019-07-06 19:46] VITALS: BP 141/81
--- NOTE | 2019-07-06 20:00 | NUR ---
RESTING IN BED AROUSED EASILY TO VOICE, SON AT BEDSIDE REPORTS SHE HAS BEEN SLEEPY AND CONFUSED SINCE GETTING MUSCLE RELAXER EARLIER TODAY, PT REPSONDS APPROPATELY TO QUESTIONS AND REQUEST, DOES APPEAR SLEEPY, WILL MONITOR, SEE ASSESSMENT, CALL LIGHT IN REACH
[2019-07-07] VITALS: BP 142/73
[2019-07-07 04:00] VITALS: BP 120/51
[2019-07-07 06:21] LABS: BASOPHILS 0.1 % (0-2); HEMATOCRIT 37.1 % (36.0-48.0); HEMOGLOBIN 11.2 g/dL (12-16); IMMATURE GRANULOCYTES 0.4 % (0-5); LYMPHOCYTES 5.5 % (15-50); MCH 29.3 pg (26.0-34.0); MCHC 30.2 g/dL (31.0-37.0); MCV 97.1 fL (80.0-100.0); MEAN PLATELET VOLUME 10.1 fL (7.4-10.4); MONOCYTES 13.6 % (2-11); NEUTROPHILS 79.4 % (40-80); PLATELET COUNT 247 10x3/uL (130-400); RBC 3.82 10x6/uL (4.00-5.40); RDW 15.2 % (11.5-14.5); WBC 8.2 10x3/uL (4.8-10.8)
[2019-07-07 06:25] LABS: INR 1.15 (0.85-1.17); PROTIME 14.1 SECONDS (11.6-15.0)
[2019-07-07 06:29] LABS: ANION GAP 11.3 mmol/L (8-16); CALCIUM 8.4 mg/dL (8.5-10.1); CARBON DIOXIDE 31.2 mmol/L (21.0-32.0); POTASSIUM - SERUM 4.5 mmol/L (3.5-5.1)
[2019-07-07 06:31] LABS: CREATININE - SERUM 1.5 mg/dL (0.6-1.3)
[2019-07-07 07:55] LABS: CKMB 1.1 U/L (0.0-3.6); CREATINE KINASE 93 UL (21-215)
[2019-07-07 08:06] LABS: TROPONIN-I < 0.017 ng/mL (0.000-0.060)
--- NOTE | 2019-07-07 08:45 | NUR ---
PATIENT SITTING UP ON BEDSIDE COMMODE. SMALL BM AT THIS TIME. ASSISTED TO CHAIR WITH IV INTACT. NO COMPLAINTS. CALL LIGHT WITHIN REACH. FAMILY AT BEDSIDE.
[2019-07-07 09:06] VITALS: BP 118/747
[2019-07-07 12:52] VITALS: BP 118/94
--- NOTE | 2019-07-07 13:54 | NUR ---
PATIENT SITTING UP IN CHAIR WITH NO COMPLAINTS OR SIGNS OF DISTRESS. FAMILY AT BEDSIDE. CALL LIGHT WITHIN REACH.
--- NOTE | 2019-07-07 15:30 | NUR ---
PATIENT UP IN CHAIR WITH IV INTACT. NO COMPLAINTS OR SIGNS OF DISTRESS. FAMILY AT BEDSIDE. CALL LIGHT WITHIN REACH.
[2019-07-07 15:54] VITALS: BP 129/48
--- NOTE | 2019-07-07 18:41 | NUR ---
PATIENT SITTING UP IN CHAIR WITH IV INTACT. NO COMPLAINTS OR SIGNS OF DISTRESS. FAMILY AT BEDSIDE. CALL LIGHT WITHIN REACH.
--- NOTE | 2019-07-07 19:00 | NUR ---
BEDSIDE REPORT RECEIVED AND CARE OF PT ASSUMED. PT LYING IN LOW ALMARAZ'S POSITION VISITING WITH SON. IV TO RIGHT AC PATENT WITH NS INFUSING AT 20 ML/HR. CONCRETE ROD BUSTER W/ DILAUDID IN USE FOR PAIN CONTROL. CONTUSION / LACERATION ON LEFT FOREHEAD APPROXIMATED WITH SUTURES. O2 IN USE VIA NC AT 3.5 L. DISCUSSED AM SURGERY AND NEED TO BE NPO AFTER MIDNIGHT. SIGNAGE PLACED ON DOOR.
--- NOTE | 2019-07-07 19:15 | NUR ---
PT CONSENTED FOR AM SURGERY...SON SIGNED CONSENT FORMS.
--- NOTE | 2019-07-07 20:12 | NUR ---
HS MEDICATIONS GIVEN. WILL CONTINUE TO MONITOR FOR NEEDS. PT DECLINES HS SNACK AT THIS TIME.
--- NOTE | 2019-07-07 20:20 | NUR ---
EMPTIED 200 ML THICK DARK GREEN LIQUID FROM ILEOSTOMY. EMPTIED 10 MG SEROUS FLUID FROM RICKY DRAIN.
--- NOTE | 2019-07-07 20:37 | NUR ---
GAVE X2 ORANGE SHEBERT FOR HS SNACK.
[2019-07-07 20:56] VITALS: BP 97/71
--- NOTE | 2019-07-07 23:20 | NUR ---
PT BATHED AND ALL LINENS AND GOWN CHANGED. POSITIONED FOR COMFORT.
[2019-07-08 01:48] VITALS: BP 130/55
[2019-07-08 05:24] VITALS: BP 140/70
[2019-07-08 06:18] LABS: BASOPHILS 0.2 % (0-2); EOSINOPHILS 0.5 % (0-7); HEMATOCRIT 35.8 % (36.0-48.0); HEMOGLOBIN 11.1 g/dL (12-16); IMMATURE GRANULOCYTES 0.1 % (0-5); LYMPHOCYTES 4.3 % (15-50); MCH 29.7 pg (26.0-34.0); MCV 95.7 fL (80.0-100.0); MEAN PLATELET VOLUME 9.9 fL (7.4-10.4); NEUTROPHILS 85.9 % (40-80); PLATELET COUNT 224 10x3/uL (130-400); RBC 3.74 10x6/uL (4.00-5.40); RDW 14.8 % (11.5-14.5); WBC 8.6 10x3/uL (4.8-10.8)
[2019-07-08 06:25] LABS: INR 1.1 (0.85-1.17); PROTIME 13.7 SECONDS (11.6-15.0)
[2019-07-08 06:29] LABS: ANION GAP 9.7 mmol/L (8-16); CALCIUM 7.7 mg/dL (8.5-10.1); CARBON DIOXIDE 30.8 mmol/L (21.0-32.0); CREATININE - SERUM 1.3 mg/dL (0.6-1.3); MAGNESIUM - SERUM 3.4 mg/dL (1.8-2.4); POTASSIUM - SERUM 4.5 mmol/L (3.5-5.1)
--- NOTE | 2019-07-08 07:30 | NUR ---
PATIENT LYING IN BED SPOUSE AT BEDSIDE, NO NEEDS VOICED, ASKED ABOUT TIME FOR KYPHOPLASTY ADVISED SOMEONE WITH IR WOULD BE IN SHORTLY AND WOULD BE ABLE TO TELL MORE. NO OTHER NEEDS VOCIED, CONTINUE WITH PLAN OF CARE
[2019-07-08 07:59] VITALS: BP 139/64
--- NOTE | 2019-07-08 14:33 | NUR ---
PT IS WITHOUT DISTRESS.PROCEDURE CANCELLED RE.. MULTIPLE LOOSE STOOLS.CALL LIGHT IN REACH
[2019-07-08 15:55] VITALS: BP 131/48
--- NOTE | 2019-07-08 20:00 | NUR ---
ASSESSMENT PER FLOWSHEET. IV PATENT RT AC OF NS AT 20CC'S/HR CHIEF INVESTMENT OFFICER OF DILAUDID IN USE W/SETTINGS AT 0.2MG Q10MIN W/4MG Q4H L/O. HEMOTOMA TO LEFT FOREHEAD W/STITCHES. BRUISING AND SWELLING. BRUISE TO RT KNEE. RED AND SWOLLEN. ANDREY BED ALARM ON. SR UP X2. CALL LIGHT WITHIN REACH. O2 ON 3.5L/M PER NC.
--- NOTE | 2019-07-08 21:00 | NUR ---
MEDS GIVEN PER MAR.
[2019-07-08 22:28] VITALS: BP 146/59
[2019-07-09] VITALS: BP 146/60
--- NOTE | 2019-07-09 00:52 | NUR ---
EYES CLOSED RESPIRATIONS WITH EASE AND UNLABORED.
[2019-07-09 06:06] LABS: BASOPHILS 0.5 % (0-2); EOSINOPHILS 0.7 % (0-7); HEMATOCRIT 36.1 % (36.0-48.0); HEMOGLOBIN 11.5 g/dL (12-16); IMMATURE GRANULOCYTES 0.5 % (0-5); LYMPHOCYTES 5.5 % (15-50); MCH 29.9 pg (26.0-34.0); MCHC 31.9 g/dL (31.0-37.0); MCV 93.8 fL (80.0-100.0); MEAN PLATELET VOLUME 10.2 fL (7.4-10.4); NEUTROPHILS 82.8 % (40-80); RBC 3.85 10x6/uL (4.00-5.40); RDW 15.1 % (11.5-14.5); WBC 8.4 10x3/uL (4.8-10.8)
[2019-07-09 06:13] VITALS: BP 136/80
[2019-07-09 06:23] LABS: ANION GAP 12.2 mmol/L (8-16); CALCIUM 8.2 mg/dL (8.5-10.1); CARBON DIOXIDE 28.9 mmol/L (21.0-32.0); CREATININE - SERUM 1.1 mg/dL (0.6-1.3); MAGNESIUM - SERUM 2.6 mg/dL (1.8-2.4); POTASSIUM - SERUM 4.1 mmol/L (3.5-5.1)
[2019-07-09 06:24] LABS: INR 1.12 (0.85-1.17); PROTIME 13.9 SECONDS (11.6-15.0)
[2019-07-09 06:25] LABS: PLATELET COUNT 285 10x3/uL (130-400)
[2019-07-09 08:47] VITALS: BP 198/94
--- NOTE | 2019-07-09 08:55 | NUR ---
PATIENTS B/P 191/105, NOTIFIED MATY PRATT APN AND ORDER RECIEVED TO GIVE APRESOINE 10MG IV X1. APRESOLINE GIVEN, WILL CONT TO MONITOR.
--- NOTE | 2019-07-09 09:20 | NUR ---
B/P RECHECK 180/100
--- NOTE | 2019-07-09 10:15 | NUR ---
B/P RECHECK 174/
--- NOTE | 2019-07-09 12:34 | NUR ---
Nutrition Follow Up: Patient stated that she does not have an appetite. She has been having diarrhea. She denied nausea, vomiting, and pain. Diet: Regular Diet BM x 1 today PO intake: 32% for 6 meals Sig Meds: Reglan, pepcid, lovenox, Mag Ox, Folate, Miralax, Zofran, Protonix Clinical Dietitian to continue following patient DHS
[2019-07-09 12:36] VITALS: BP 113/74
--- NOTE | 2019-07-09 15:21 | NUR ---
OT NOTE: PT REFUSED TMT TODAY STATING THAT SHE JUST COULDNT HANDLE IT RIGHT NOW. STATED THAT SHE WAS A MESS. ABOUT TO BE CLEANED SECONDARY TO SECOND EPISODE OF DIARRHEA. HENRI MOORE, OTR/L
[2019-07-09 16:33] VITALS: BP 152/83
[2019-07-09 22:56] VITALS: BP 161/77
[2019-07-10 01:02] VITALS: BP 180/83
--- NOTE | 2019-07-10 03:03 | NUR ---
PT RESTING IN BED. EYES CLOSED. NO SIGNS OF DISTRESS. BREATHING EVEN AND UNLABORED. IV SITE RT AC DRESSING CLEAN DRY AND ITNACT. NO SIGNS OF INFECTION. LT EYE BRUISING, LACERATION, SWELLING. IV SITE RT AC DRESSING CLEAN DRY AND INTACT. NO SIGNS OF INFECTION. BOWEL SOUNDS ACTIVE. NO LOWER LEG SWELLING PRESENT. WILL CONTINUE PLAN OF CARE. CALL LIGHT IN REACH. BED LOWERED AND LOCKED. ANDREY ALARM ON.
--- NOTE | 2019-07-10 03:07 | NUR ---
I have reviewed this patient and I concur with the Shift Assessment completed by the Licensed Practical Nurse today this shift.
[2019-07-10 04:58] VITALS: BP 184/70
[2019-07-10 07:14] LABS: BASOPHILS 0.9 % (0-2); EOSINOPHILS 0.6 % (0-7); HEMATOCRIT 35.6 % (36.0-48.0); HEMOGLOBIN 11.4 g/dL (12-16); IMMATURE GRANULOCYTES 0.5 % (0-5); LYMPHOCYTES 6.8 % (15-50); MCH 30.1 pg (26.0-34.0); MCV 93.9 fL (80.0-100.0); MEAN PLATELET VOLUME 9.7 fL (7.4-10.4); NEUTROPHILS 82.2 % (40-80); PLATELET COUNT 273 10x3/uL (130-400); RBC 3.79 10x6/uL (4.00-5.40); RDW 15.2 % (11.5-14.5); WBC 7.8 10x3/uL (4.8-10.8)
[2019-07-10 07:15] LABS: ANION GAP 14.7 mmol/L (8-16); CALCIUM 7.9 mg/dL (8.5-10.1); CARBON DIOXIDE 26.4 mmol/L (21.0-32.0); MAGNESIUM - SERUM 2.1 mg/dL (1.8-2.4); POTASSIUM - SERUM 4.1 mmol/L (3.5-5.1)
[2019-07-10 08:45] VITALS: BP 181/98
[2019-07-10 12:51] VITALS: BP 130/74
--- NOTE | 2019-07-10 15:00 | NUR ---
PATIENT TO GET KYPHOPLASTY.
[2019-07-10 17:02] VITALS: BP 137/74; BP 137/76; BP 139/75; BP 144/75; BP 154/70
--- NOTE | 2019-07-10 18:45 | NUR ---
PATIENT IN BED WITH IV INTACT. NO COMPLAINTS OR SIGNS OF DISTRESS. FAMILY AT EDSIDE. NO COMPLAINTS OR SIGNS OF DISTRES. VS STABLE. TOLERATED REGULAR DIET.
--- NOTE | 2019-07-10 19:30 | NUR ---
PT SITTING UP IN BED WITHOUT DISTRESS, AOX4. FAMILY AT BEDSIDE. IV RIGHT FA INFUSING NS @ 50, NO REDNESS OR SWELLING AT INSERTION SITE. O2 3L/NC. DENIES NEEDS AT THIS TIME. BED LOWEST POSITION, SRX2, CL IN REACH. BED ALARM ON. WILL CTM
[2019-07-10 20:00] VITALS: BP 152/80
--- NOTE | 2019-07-10 22:50 | NUR ---
PT STATES SHE IS HAVING GENRALIZED PAIN WITH MOST OF IT IN HER BACK 04/17. PERCOCET GIVEN ORDERED. SPOKE WITH PT SON WHO STATES PT WAS SUPPOSED TO HAVE LOVENOX RESTARTED TONIGHT AFTER PROCEDURE. EXPLAINED TO PT THAT LOVENOX WAS STILL ON HOLD, SON REQUESTED THIS NURSE CALL AND SPEAK WITH DR HENDRICKS. PAGED LANDON NGO PIPE PROCESSOR FOR ELADIO, STATES TO RESTART LOVENOX. SON INFORMED. LOVENOX GIVEN. WILL CTM
[2019-07-11 04:00] VITALS: BP 167/72
[2019-07-11 06:08] LABS: BASOPHILS 0.8 % (0-2); EOSINOPHILS 2.1 % (0-7); HEMATOCRIT 36.4 % (36.0-48.0); HEMOGLOBIN 11.4 g/dL (12-16); IMMATURE GRANULOCYTES 0.6 % (0-5); LYMPHOCYTES 11.2 % (15-50); MCH 29.6 pg (26.0-34.0); MCHC 31.3 g/dL (31.0-37.0); MCV 94.5 fL (80.0-100.0); MEAN PLATELET VOLUME 9.9 fL (7.4-10.4); MONOCYTES 9.5 % (2-11); NEUTROPHILS 75.8 % (40-80); PLATELET COUNT 289 10x3/uL (130-400); RBC 3.85 10x6/uL (4.00-5.40); RDW 15.5 % (11.5-14.5); WBC 7.2 10x3/uL (4.8-10.8)
[2019-07-11 06:39] LABS: ANION GAP 12.5 mmol/L (8-16); CALCIUM 7.9 mg/dL (8.5-10.1); CARBON DIOXIDE 28.7 mmol/L (21.0-32.0); CREATININE - SERUM 0.9 mg/dL (0.6-1.3); MAGNESIUM - SERUM 1.9 mg/dL (1.8-2.4); POTASSIUM - SERUM 4.2 mmol/L (3.5-5.1)
--- NOTE | 2019-07-11 07:00 | NUR ---
ALERT AND ORIENTED, RESTING IN BED. NO C/O PAIN. NO S/S OF ACUTE DISTRESS NOTED. HEMATOMA TO LEFT EYEBROW. BRUISING TO FACE, BILATERAL ARMS, BILATERAL LEGS AND ABDOMEN. UP WITH ASSIST. POD #1 KYPHOPLASTY. ON 3L O2, NC. IV TO RIGHT FOREARM, NS INFUSING @ 50ML/HR. SITE PATENT WITHOUT REDNESS OR SWELLING. PT DENIES ANY NEEDS AT THIS TIME. CALL LIGHT IN REACH. WILL CONTINUE TO MONITOR.
[2019-07-11 08:59] VITALS: BP 159/77
[2019-07-11 10:07] LABS: INR 1.22 (0.85-1.17); PROTIME 14.8 SECONDS (11.6-15.0)
[2019-07-11] MEDS ORDERED: BACTRIM 400/80 MG TA PO (10:44)
[2019-07-11] MEDS ORDERED: ALBUTEROL2.5 MG/3 M UPD (10:44)
[2019-07-11] MEDS ORDERED: IPRAT-ALBUT 0.5-3 ML UPD (10:45)
[2019-07-11] MEDS ORDERED: DESERYL PO (10:45)
[2019-07-11] MEDS ORDERED: PERCOCET 10-321 EAC1 PO (10:45)
[2019-07-11] MEDS ORDERED: FLORAJEN3 CAPS460 MG PO (10:45)
[2019-07-11] MEDS ORDERED: AKWA TEARS15 ML EACH EYE (10:45)
[2019-07-11] MEDS ORDERED: CATAPRES0.1 MG PO (10:45)
[2019-07-11] MEDS ORDERED: PROTONIX40 MG PO (10:46)
[2019-07-11] MEDS ORDERED: COUMADIN5 MG PO (10:46)
[2019-07-11] MEDS ORDERED: LOVENOX INJ100 MG/ML SC (10:48)
--- NOTE | 2019-07-11 11:43 | MORECARE ---
CASE MANAGEMENT DISCHARGE SUMMARY PATIENT: ANNE MARIE PAK UNIT: [id number] ADM DATE: 07/02/19 AGE: 83 : 36 SEX: F ROOM/BED: [id number] AUTHOR: JASKARAN,DOC PHYSICIAN: REFERRING PHYSICIAN: ALICIA MOHR MD DATE OF SERVICE: 07/11/19 Discharge Plan Patient Name: ANNE MARIE PAK Facility: [facility]:Hall : 1935 Planned Disposition: Inpatient Rehab Anticipated Discharge Date: Discharge Date: Expected LOS: Initial Reviewer: [email or web address] Initial Review Date: 07/01/2019 Generated: 07/11/19 12:42 pm DCP- Discharge Planning Updated by [id number]: Rehana Jiménez on 07/02/19 10:[address] Patient Name: ANNE MARIE PAK Admission Status: ER Accout number: [id number] Admission Date: 07-01-2019 : 1935 Admission Diagnosis: Attending: ALICIA MOHR Current LOS: 1 Anticipated DC Date: Planned Disposition: Inpatient Rehab Primary Insurance: MEDICARE A & B late entry @ 0905 Discharge Planning Comments: CM met with patient & son to complete initial dc planning assessment. CM educated patient on the CM role and verbal consent given by patient to complete assessment. Patient lives at home where she is independent with her care. She lives at [facility]. At discharge patient plans to go to inpatient rehab when she is able to come and feels this is a safe discharge. Patient has a walker (that she does not use) BCS, life alert and wears home O2 at night ( [place] home patient) . Her son will be her sweeper driver home at discharge. HURTADO was given and explained to her and her son. Patient denied known discharge needs at this time. CM will continue to follow and will assist as needed with dc plans/needs. Sports Recruiter: Rehana Jiménez DCPIA - Discharge Planning Initial Assessment Updated by [email or web address]: Rehana Jiménez on 07/02/19 11:52 am * Is the patient Alert and Oriented? Yes * How many steps to enter\exit or inside your home? * PCP [facility] * Pharmacy [facility] * Preadmission Environment Home Alone * ADLs Independent * Equipment Bedside Commode Oxygen Rolling Walker Walker * Other Equipment LIFE ALERT * List name and contact numbers for known caregivers / representatives who currently or will assist patient after discharge: SANJAY MCCORMICK [phone] * Verbal permission to speak to the caregivers and representatives has been obtained from the patient. Yes * Community resources currently utilized None * Additional services required to return to the preadmission environment? Yes * Can the patient safely return to the preadmission environment? No * Has this patient been hospitalized within the prior 30 days at any hospital? No Coverage Notice Reviewer: [email or web address] Tracy Jiménez Notice Issued Date-Time: 07/02/2019 9:05 Notice Type: Medicare Outpatient Observation Notice Notice Delivered To: Patient Relationship to Patient: Recording Studio Setup Worker Name: Delivery Method: HAND - Hand Delivered Sofía Days: Prior Verbal Notification: Recipient Understood Notice: Yes Recipient Signature: Yes Med Rec Note Co-signed by Attending: Coverage Notice Comment: Last DP export: 07/02/19 10:58 a Patient Name: ANNE MARIE PAK Page [phone] at 1143 All edits/amendments must be made on the electronic document DICTATION DATE: 07/11/19 1142 ACCORDION MAKER: RICKI 07/11/19 1142 RPT#: [id number] DC DATE: STATUS: ADM IN [facility] [address] [place] [address] END OF REPORT
[2019-07-11 12:38] VITALS: BP 142/69
--- NOTE | 2019-07-11 14:21 | NUR ---
I have reviewed this patient and I concur with the Shift Assessment completed by the Licensed Practical Nurse today this shift.
--- NOTE | 2019-07-11 14:47 | NUR ---
DISCHARGED PATIENT TO INPATIENT REHAB VIA WHEELCHAIR ACCOMPANIED BY STAFF. NO C/O PAIN. NO S/S OF ACUTE DISTRESS NOTED. DISCONTINUED IV, CATHETER TIP INTACT. WENT OVER DISCHARGE INSTRUCTIONS WITH PATIENT, VERBALIZED UNDERSTANDING. GAVE REPORT TO RHIANNON IN REHAB. PT DENIES ANYTHING FURTHER.
--- NOTE | 2019-07-18 08:23 | MORECARE ---
CASE MANAGEMENT DISCHARGE SUMMARY PATIENT: ANNE MARIE PAK UNIT: [id number] ADM DATE: 07/02/19 AGE: 83 : 36 SEX: F ROOM/BED: D.2219 AUTHOR: ALISON JESSICA PHYSICIAN: REFERRING PHYSICIAN: ALICIA MOHR MD DATE OF SERVICE: 07/18/19 Discharge Plan Patient Name: ANNE MARIE PAK Facility: [facility] : 1935 Planned Disposition: Inpatient Rehab Anticipated Discharge Date: Discharge Date: 07/11/2019 Expected LOS: 0 Initial Reviewer: [email or web address] Initial Review Date: 07/01/2019 Generated: 07/18/19 9:22 am Comments DCP- Discharge Planning Updated by [email or web address]: Rehana Jiménez on 07/11/19 10:[address] Patient to be discharged to inpatient rehab today, imm served and explained. son at bedside. CM to follow and assist with dc planning as needed DCP- Discharge Planning Updated by [email or web address]: Rehana Jiménez on 07/02/19 10:[address] Patient Name: ANNE MARIE PAK Admission Status: ER Accout number: [id number] Admission Date: 07-01-2019 : 1935 Admission Diagnosis: Attending: ALICIA MOHR Current LOS: 1 Anticipated DC Date: Planned Disposition: Inpatient Rehab Primary Insurance: MEDICARE A & B late entry @ 0905 Discharge Planning Comments: CM met with patient & son to complete initial dc planning assessment. CM educated patient on the CM role and verbal consent given by patient to complete assessment. Patient lives at home where she is independent with her care. She lives at [facility]. At discharge patient plans to go to inpatient rehab when she is able to come and feels this is a safe discharge. Patient has a walker (that she does not use) BCS, life alert and wears home O2 at night ( [place] home patient) . Her son will be her emergency vehicle driver home at discharge. HURTADO was given and explained to her and her son. Patient denied known discharge needs at this time. CM will continue to follow and will assist as needed with dc plans/needs. Librarian Assistant: Rehana Jiménez DCPIA - Discharge Planning Initial Assessment Updated by [email or web address]: Rehana Jiménez on 07/02/19 11:52 am * Is the patient Alert and Oriented? Yes * How many steps to enter\exit or inside your home? * PCP SAFIAO * Pharmacy [facility] * Preadmission Environment Home Alone * ADLs Independent * Equipment Bedside Commode Oxygen Rolling Walker Walker * Other Equipment LIFE ALERT * List name and contact numbers for known caregivers / representatives who currently or will assist patient after discharge: SANJAY MCCROMICK [phone] * Verbal permission to speak to the caregivers and representatives has been obtained from the patient. Yes * Community resources currently utilized None * Additional services required to return to the preadmission environment? Yes * Can the patient safely return to the preadmission environment? No * Has this patient been hospitalized within the prior 30 days at any hospital? No Coverage Notice Reviewer: [id number] Tracy Jiménez Notice Issued Date-Time: 07/02/2019 9:05 Notice Type: Medicare Outpatient Observation Notice Notice Delivered To: Patient Relationship to Patient: Distribution A Class Lineman Name: Delivery Method: HAND - Hand Delivered Sofía Days: Prior Verbal Notification: Recipient Understood Notice: Yes Recipient Signature: Yes Med Rec Note Co-signed by Attending: Coverage Notice Comment: Reviewer: [id number] Tracy Jiménez Notice Issued Date-Time: 07/11/2019 11:40 Notice Type: IM Discharge Notice Notice Delivered To: Patient Relationship to Patient: Distribution A Class Lineman Name: Delivery Method: HAND - Hand Delivered Sofía Days: Prior Verbal Notification: Recipient Understood Notice: Yes Recipient Signature: Yes Med Rec Note Co-signed by Attending: Coverage Notice Comment: Last DP export: 07/11/19 10:43 a Patient Name: ANNE MARIE PAK Page [id number] at 0823 All edits/amendments must be made on the electronic document DICTATION DATE: 07/18/19821 ELECTRIC INSTALLER: RICKI 07/18/19821 RPT#: [id number] DC DATE:07/11/19 STATUS: DIS IN [facility] [address] [place] [address] END OF REPORT
== END 2019-07-11 14:54 | DRG 477 ==
LOC: D.ER 05:07 → D.MS 10:36 → OBSVTIME 10:37 → D.MS 07-02 14:52
PROVIDERS: Emergency Medicine; Family Medicine; General Practice; ADMIT Internal Medicine Nephrology; ATTEND Internal Medicine Nephrology
PROC: 0HQ0XZZ Repair Scalp Skin, External Approach (ICD-10-PCS; 2019-07-01)
PROC: 0PB43ZX Excision of Thoracic Vertebra, Percutaneous Approach, Diagnostic (ICD-10-PCS; 2019-07-10)
PROC: 0PU43JZ Supplement Thoracic Vertebra with Synthetic Substitute, Percutaneous Approach (ICD-10-PCS; 2019-07-10)
PROC: 0PS43ZZ Reposition Thoracic Vertebra, Percutaneous Approach (ICD-10-PCS; principal; 2019-07-10 14:50)
DX: S22.040A Wedge compression fracture of fourth thoracic vertebra, initial encounter for closed fracture (principal); J96.20 Acute and chronic respiratory failure, unspecified whether with hypoxia or hypercapnia; N39.0 Urinary tract infection, site not specified; E72.11 Homocystinuria; R55 Syncope and collapse; W18.12XA Fall from or off toilet with subsequent striking against object, initial encounter; Y92.009 Unspecified place in unspecified non-institutional (private) residence as the place of occurrence of the external cause; S01.01XA Laceration without foreign body of scalp, initial encounter; Z99.81 Dependence on supplemental oxygen; J44.9 Chronic obstructive pulmonary disease, unspecified; S80.01XA Contusion of right knee, initial encounter; S80.212A Abrasion, left knee, initial encounter; E78.5 Hyperlipidemia, unspecified; R01.1 Cardiac murmur, unspecified; Z79.01 Long term (current) use of anticoagulants; B96.20 Unspecified Escherichia coli [E. coli] as the cause of diseases classified elsewhere

== ENCOUNTER 2019-07-11 15:14 | Inpatient (IN) | payer MEDICARE ==
[~2019-07-11] VITALS: Ht 165.1 cm; Wt 97.5 kg
[~2019-07-11 15:14] MED LIST changes: +AKWA TEARS15 ML EACH EYE; +ALBUTEROL2.5 MG/3 M UPD; +BACTRIM 400/80 MG TA PO; +CALCIUM 500 +1 EAC3 PO; +CATAPRES0.1 MG PO; +CITRACAL + D E1 EACH PO; +COUMADIN1 MG PO; +DESERYL PO; +FISH OIL 1,0001 CA1 PO; +FLORAJEN3 CAPS460 MG PO; +FOLIC ACID1 MG PO; +LOTEPREDNOL OP; +LOVENOX INJ100 MG/ML SC; +LOW DOSE ASPIRI81 M1 PO; +PERCOCET 10-321 EAC1 PO; +PROTONIX40 MG PO; +RESTASIS EMU 0.0 IOC; +SINGULAIR10 MG PO
--- NOTE | 2019-07-11 16:00 | NUR ---
PT ADMITTED TO REHAB FROM ACUTE FLOOR. PT HAS O2 AT 3LPM/NC. PT IS A&OX4. PT IS ACCOMPANIED BY SON AND DAUGHTER IN LAW. PT DAUGHTER IN LAW GIVING PT SHOWER TONIGHT. PT REMINDED THAT SHE WOULD ALSO HAVE A SHOWER BY OT TOMORROW. PT HAS BRUISING ON ALL EXTREMETIES. PT HAS AN INCISION TO BACK COVERED BY 4X4 AND TEGADERM FROM KYPHOPLASTY. PT HAS A HORIZONTAL LACERATION RIGHT ABOVE LEFT EYE WITH SUTURES STONEWORKING SANDER. SCABBING NOTED. ORDERS FROM MADDY SCHWARTZ, TO APPLY WARM SALINE COMPRESS TO LOOSEN SCABS AND REMOVE THE OUTER SUTURES AND KEEP MIDDLE SUTURES AT THIS TIME. PT ORIENTED TO ROOM. PT UNDERSTANDS USE OF CALL LIGHT. PT DENIES NEEDS AT THIS TIME. WCTM.
[2019-07-11 16:13] VITALS: BP 148/69; BMI 35.8
--- NOTE | 2019-07-11 19:25 | NUR ---
GREETED PATIENT AND INTRODUCED MYSELF HER NURSE. ASSISTED PATIENT FROM BATHROOM BACK TO BED AND REPOSITIONED FOR COMFORT. RESPIRATIONS EVEN. NO S/S OF DISTRESS. CALL LIGHT IN REACH.
[2019-07-11 21:22] VITALS: BP 148/69
--- NOTE | 2019-07-12 00:45 | NUR ---
PT. RESTING QUIETLY WITH EYES CLOSED. O2 AT 3L IN USE VIA NC. RESPIRATIONS EVEN. NO S/S OF DISTRESS. SR UP X 2. BED IN LOWEST POSITION. CALL LIGHT IN REACH.
[2019-07-12 08:48] LABS: BASOPHILS 0.6 % (0-2); EOSINOPHILS 1.8 % (0-7); HEMATOCRIT 36.5 % (36.0-48.0); HEMOGLOBIN 11.5 g/dL (12-16); IMMATURE GRANULOCYTES 0.2 % (0-5); LYMPHOCYTES 8.3 % (15-50); MCHC 31.5 g/dL (31.0-37.0); MCV 95.3 fL (80.0-100.0); MEAN PLATELET VOLUME 9.9 fL (7.4-10.4); MONOCYTES 9.4 % (2-11); NEUTROPHILS 79.7 % (40-80); PLATELET COUNT 317 10x3/uL (130-400); RBC 3.83 10x6/uL (4.00-5.40); RDW 15.8 % (11.5-14.5); WBC 8.8 10x3/uL (4.8-10.8)
[2019-07-12 08:55] VITALS: BP 160/78
[2019-07-12 08:56] LABS: INR 1.16 (0.85-1.17); PROTIME 14.3 SECONDS (11.6-15.0)
[2019-07-12 08:58] LABS: ANION GAP 8.9 mmol/L (8-16); CALCIUM 8.1 mg/dL (8.5-10.1); POTASSIUM - SERUM 3.9 mmol/L (3.5-5.1)
--- NOTE | 2019-07-12 13:07 | NUR ---
PATIENT ADMITTED TO REHAB FROM ACUTE FLOOR. DR. SCHAFER IS HER PCP. DME AT HOME IS A ROLLING WALKER, BEDSIDE COMMODE, O2 ( [facility] HOME PATIENT) AND LIFE ALERT. DISCHARGE PLANS ARE FOR HER TO RETURN TOHER HOME AT DISCHARGE AND HER FAMILY WILL TRANSPORT .
[2019-07-12 14:02] VITALS: Ht 165.1 cm; Wt 97.5 kg
--- NOTE | 2019-07-12 19:30 | NUR ---
PT IS RESTING IN BED WITH EYES OPEN. ALERT AND ORIENTED X 3. DENIES ANY PAIN OR DISCOMFORT AT THIS TIME. PT STATES SHE WOULD LIKE A UPDRAFT TX WHEN THE RESP. THERAPIST ARRIVES ON THE FLOOR. NO SOB NOTED. SUTURES TO FOREHEAD ARE INTACT. IS VISITING IN THE ROOM. CALL LIGHT AND BEDSIDE TABLE ARE WITHIN EASY REACH.
[2019-07-12 22:00] VITALS: BP 140/71
--- NOTE | 2019-07-12 22:26 | NUR ---
PT IS RESTING QUIETLY IN BED WITH EYES CLOSED. NO ACUTE DISTRESS NOTED.
--- NOTE | 2019-07-13 03:00 | NUR ---
I have reviewed this patient and I concur with the Shift Assessment completed by the Licensed Practical Nurse today this shift.
--- NOTE | 2019-07-13 04:39 | NUR ---
RESTING IN BED WITH EYES CLOSED.
[2019-07-13 06:09] LABS: INR 1.51 (0.85-1.17); PROTIME 17.6 SECONDS (11.6-15.0)
[2019-07-13 08:00] VITALS: BP 133/76
--- NOTE | 2019-07-13 11:19 | NUR ---
WORKING WITH PFrancine IN [place]. PAIN MEDS GIVEN REQUESTED FOR BACK PAIN.
--- NOTE | 2019-07-13 11:20 | NUR ---
SON INSISTED DITROPAN BE DC/D.
--- NOTE | 2019-07-13 19:30 | NUR ---
PT IS UP AMBULATING IN THE HALLS WITH RW, AND A FAMILY MEMBER. SUTURES TO FOREHEAD ARE CDI, IS INCISION TO BACK. PT DENIES ANY NEEDS AT THIS TIME.
[2019-07-13 21:03] VITALS: BP 162/78
--- NOTE | 2019-07-13 21:33 | NUR ---
PT IS RECLINER AT THIS TIME. NO NEEDS VOICED.
--- NOTE | 2019-07-13 23:32 | NUR ---
QUIET HOURS. PT LYING IN BED SUPINE EYES CLOSED RESTING QUIETLY. RR EVEN AND UNLABORED. WILL CONTINUE TO MONITOR
--- NOTE | 2019-07-14 02:50 | NUR ---
I have reviewed this patient and I concur with the Shift Assessment completed by the Licensed Practical Nurse today this shift.
--- NOTE | 2019-07-14 06:04 | NUR ---
PT RESTING IN BED. MAIL EXAMINER DRAWING AM LAB. NO NEEDS VOICED. TOLERATED AM MED WITHOUT DIFFICULTY.
[2019-07-14 06:55] LABS: INR 1.46 (0.85-1.17); PROTIME 17.1 SECONDS (11.6-15.0)
[2019-07-14 08:00] VITALS: BP 166/70
--- NOTE | 2019-07-14 10:43 | NUR ---
SITTING UP IN RECLINER IN ROOM. OXYGEN IN USE. DENIES NEEDS. SON VISITING
--- NOTE | 2019-07-14 19:30 | NUR ---
PT IS SITTING IN A RECLINER IN HER ROOM. ALERT AND ORIENTED X 3. DENIES ACUTE DISCOMFORT AT THIS TIME. NO NEEDS VOICED. VSS. SUTURES TO FOREHEAD ARE INTACT. NO DRAINAGE NOTED. CALL LIGHT AND BEDSIDE TABLE ARE WITHIN EASY REACH.
[2019-07-14 20:54] VITALS: BP 156/90
--- NOTE | 2019-07-14 21:05 | NUR ---
PT ASSISTED TO THE BATHROOM AND TO BED BY RHEA BAZZI. SHE WILL NOT ALLOW A MALE ATTENDANT IN ROOM WITH PRIVATE CARE.
--- NOTE | 2019-07-14 23:49 | NUR ---
QUIET HOURS. PT LYING IN BED SUPINE HOB 15 DEGREES EYES CLOSED RESTING QUIETLY. CONTINUES ON 3L VIA NC. RR EVEN AND UNLABORED.
--- NOTE | 2019-07-15 01:26 | NUR ---
I have reviewed this patient and I concur with the Shift Assessment completed by the Licensed Practical Nurse today this shift.
--- NOTE | 2019-07-15 03:29 | NUR ---
RESTING IN BED WITH EYES CLOSED.
--- NOTE | 2019-07-15 05:50 | NUR ---
PT ASSISTED TO THE BATHROOM BY RN, AND THEN BACK TO BED. NO FURTHER NEEDS VOICED. TOLERATED AM MED WITHOUT DIFFICULTY.
[2019-07-15 07:02] LABS: INR 1.62 (0.85-1.17); PROTIME 18.6 SECONDS (11.6-15.0)
[2019-07-15 08:00] VITALS: BP 170/76
--- NOTE | 2019-07-15 08:29 | NUR ---
SITTING UP IN BED FINISHING BREAKFAST. STILL WEARING OXYGEN. DENIES PAIN OR INCREASED SOB. CALL LIGHT IN REACH
--- NOTE | 2019-07-15 14:43 | NUR ---
Nutrition Follow-up: Diet: Regular PO intake: 75% x 3 meals. Reports appetite is "not good." Likes strawberry Ensure, states that she has been drinking them with meals (not currently ordered). Labs noted. Meds noted: coumadin, bactrim, folate, fish oil, oscal. Skin assessment reviewed. Last BM 07/14/19. Wt: 215# (07/12/19) Continue regular diet. Will add Ensure to diet order as pt states she has been getting them/drinking them. Encouraged PO intake. RD Following
--- NOTE | 2019-07-15 19:55 | NUR ---
PT SITTING IN A CHAIR IH NER ROOM DOING A UPDRAFT TX. NO OTHER NEEDS VOICED AT THIS TIME.
[2019-07-15 20:44] VITALS: BP 148/60
--- NOTE | 2019-07-15 22:09 | NUR ---
PT RESTING IN BED WITH EYES OPEN. NO NEEDS VOICED.
--- NOTE | 2019-07-15 23:57 | NUR ---
PT RESTING IN BED WITH EYES CLOSED.
--- NOTE | 2019-07-16 01:14 | NUR ---
I have reviewed this patient and I concur with the Shift Assessment completed by the Licensed Practical Nurse today this shift.
--- NOTE | 2019-07-16 04:57 | NUR ---
RESTING IN BED WITH EYES CLOSED.
[2019-07-16 07:27] LABS: INR 1.81 (0.85-1.17); PROTIME 20.3 SECONDS (11.6-15.0)
[2019-07-16 08:00] VITALS: BP 169/75
--- NOTE | 2019-07-16 08:00 | NUR ---
PT EATING BREAKFAST, DENIES NEEDS. WCTM.
--- NOTE | 2019-07-16 17:54 | NUR ---
PT EATING DINNER, DENIES NEEDS AT THIS TIME. WCTM.
--- NOTE | 2019-07-16 19:45 | NUR ---
GREETED PATIENT AND INTRODUCED MYSELF HER NURSE. PATIENT IS SITTING IN RECLINER VISITING WITH FRIENDS. O2 AT 3L VIA NC. RESPIRATIONS EVEN. NO S/S OF DISTRESS. STATES NO PAIN AT THIS TIME. DENIES ANY FURTHER NEEDS AT THIS TIME. CALL LIGHT IN REACH.
[2019-07-16 22:15] VITALS: BP 138/42
--- NOTE | 2019-07-17 05:48 | NUR ---
PT. LAYING IN BED AWAKE RESTING. O2 AT 3L IN USE VIA NC. RESPIRATIONS EVEN AND UNLABORED. DENIES ANY FURTHER NEEDS. CALL LIGHT IN REACH.
[2019-07-17 07:56] LABS: CALCIUM 8.5 mg/dL (8.5-10.1); CARBON DIOXIDE 34.9 mmol/L (21.0-32.0); POTASSIUM - SERUM 4.9 mmol/L (3.5-5.1)
[2019-07-17 08:04] VITALS: BP 161/79
[2019-07-17 08:06] LABS: BASOPHILS 0.6 % (0-2); EOSINOPHILS 2.6 % (0-7); HEMATOCRIT 37.6 % (36.0-48.0); HEMOGLOBIN 11.4 g/dL (12-16); IMMATURE GRANULOCYTES 0.4 % (0-5); LYMPHOCYTES 9.4 % (15-50); MCH 29.2 pg (26.0-34.0); MCHC 30.3 g/dL (31.0-37.0); MCV 96.4 fL (80.0-100.0); MEAN PLATELET VOLUME 10.1 fL (7.4-10.4); MONOCYTES 10.9 % (2-11); NEUTROPHILS 76.1 % (40-80); RDW 15.9 % (11.5-14.5); WBC 6.9 10x3/uL (4.8-10.8)
[2019-07-17 08:07] LABS: PLATELET COUNT 390 10x3/uL (130-400)
[2019-07-17 08:28] LABS: INR 1.98 (0.85-1.17); PROTIME 21.8 SECONDS (11.6-15.0)
--- NOTE | 2019-07-17 08:29 | NUR ---
PT PARTICIPATING IN THERAPY. AM MEDS ADMINISTERED. PT DENIES NEEDS. WCTM.
--- NOTE | 2019-07-17 19:33 | NUR ---
GREETED PATIENT AND INTRODUCED MYSELF HER NURSE. PATIENT IS SITTING IN RECLINER WATCHING TV.O2 AT 3L VIA NC IN USE. RESPIRATIONS EVEN. NO S/S OF DISTRESS. STATES NO EVIDENCE OF PAIN AT THIS TIME. CALL LIGHT IN REACH.
[2019-07-17 22:00] VITALS: BP 178/72
[2019-07-18 06:37] LABS: INR 2.09 (0.85-1.17); PROTIME 22.8 SECONDS (11.6-15.0)
[2019-07-18 08:00] VITALS: BP 135/59
--- NOTE | 2019-07-18 08:00 | NUR ---
SHIFT ASSMT COMPLETED.
--- NOTE | 2019-07-18 13:40 | NUR ---
EATING LUNCH.STATED HAD BLOOD IN URINE
--- NOTE | 2019-07-18 13:43 | RHP ---
PATIENT: ANNE MARIE PAK MEDICAL RECORD: [id number] ACCOUNT: [id number] LOCATION:[facility]1119 : [birth year] ADMISSION DATE: 07/11/19 REHABILITATION HISTORY AND PHYSICAL EXAMINATION POST ADMISSION PHYSICIAN EXAMINATION POST ADMISSION PHYSICAL EXAMINATION AND HISTORY AND PHYSICAL DATE OF ADMISSION: 07/11/2019 ADMITTING DIAGNOSIS: T4 compression fracture. HISTORY OF PRESENT ILLNESS: The patient is an 83-year-old female patient, who presented to the Emergency Room on July 01. She apparently was on the commode and fell off after passing out. She was not straining or having a BM. She has got a problem with nocturia. It was typical for her to get up 4-5 times during the night to void. The patient had facial discomfort, discomfort in her upper back between her shoulders and right knee discomfort. The patient was found to have a T4 compression fracture and underwent a kyphoplasty on July 10 after having to receive treatment for UTI, which was E. coli. This was delayed due to having uncontrollable stool incontinence after receiving laxatives. She had a facial laceration that required sutures. She is on supplemental O2. She is having some acute pain, urinary incontinence, advanced age. She lives alone. High fall risk, deconditioning, debility, impaired mobility, gait disturbance, weakness, dyspnea on exertion, and self-care deficits. These are all barriers to her discharge at this time. She lives at home alone. She was independent with her mobility and ADLs. She is currently set up for mod assist for ADLs, mod assist with her mobility. She would like to discharge home at her prior level of functioning or better. Comorbidities include fall at home, syncope, scalp hematoma, scalp laceration, T4 compression fracture, UTI, [id number] respiratory failure. She is on Coumadin secondary to history of DVT, COPD, and constipation. PAST MEDICAL HISTORY: Significant for sinus problems, edema, murmur, DVT, COPD, diverticulitis in the past, osteoporosis. She has had a wrist fracture, spinal fracture, cellulitis, menopause, and depression. PAST SURGICAL HISTORY: Includes a knee replacement, hip replacement, colon resection, and hernia repair. ALLERGIES: No known drug allergies. CURRENT MEDICATIONS: Include Coumadin 5 mg daily. She is on Floranex 460 mg daily, Os-Miles 500 mg daily, Ditropan 10 mg daily. She is on folic acid 1 mg daily, Prozac 40 mg daily, omega-3 one cap daily, aspirin 81 mg daily, Protonix 40 mg daily, enoxaparin 100 mg subcutaneous b.i.d. She is on Zocor 40 mg at bedtime, Singulair 10 mg at bedtime. She is on trazodone 100 mg at bedtime. She is on Bactrim 1 p.o. b.i.d. She is on Percocet 10/325 one tab every 4 hours p.r.n. pain. She is on DuoNeb updrafts, clonidine 0.1 mg every 4 hours p.r.n. elevated blood pressure, and Ventolin updrafts. HABITS: No alcohol or tobacco use. FAMILY HISTORY: Noncontributory. HISTORY AND PHYSICAL [id number] ANNE MARIE PAK SOCIAL HISTORY: The patient would like to get back to her prior level of functioning and return home. REVIEW OF SYSTEMS: GENERAL: Does complain of weakness. HEENT: She denies cold, cough, or congestion. CARDIOVASCULAR: Denies any chest pain. PHYSICAL EXAMINATION: VITAL SIGNS: Stable. She is afebrile. GENERAL: A well-developed elderly female, who is somewhat obese. HEENT: Does have noted scalp laceration and sutures in place. Pupils are equal, round and reactive to light. LUNGS: Clear in the upper dior. HEART: Regular rate and rhythm. She does have a holosystolic murmur. ABDOMEN: Soft, benign, and nondistended. Positive bowel sounds times 4. EXTREMITIES: No clubbing, cyanosis or edema. NEUROLOGIC: She does have noted proximal muscle weakness. LABORATORY DATA: Labs are pending at this time including PT. ASSESSMENT: This is an 83-year-old female patient admitted to the rehab with a working diagnosis of compression fracture at T4. The patient has potential to make improvement. We will institute the following multidisciplinary therapies including, but not limited to, physical, occupational, respiratory, speech, nutritional services, prosthetics, and orthotics. Given her complex medical condition and risks for more complications, rehabilitation services cannot be provided at a lower level of care such as a skilled nurse facility. PLAN: 1. Admit to [facility] for an inpatient therapy to include the following disciplines; A. Physical therapy to improve gait, all transfer skills, and bed mobility to modified independent level. B. Occupational therapy to modified independent level. C. Case management to assist with discharge planning and placement options. D. Nutrition to assist with nutritional needs. E. Rehabilitation nursing to assist in monitoring the patient's underlying medical conditions and to assist with any type of bowel or bladder management. 2. The patient's current medications and medical care will be continued. 3. The patient will be placed on standard fall precautions. 4. The patient's estimated length of stay is approximately 7-10 days. 5. We will continue on antibiotics and discuss with family. TRANSINT:[id number] Voice Confirmation ID: [id number] DOCUMENT ID: [id number] CONNIE notes whether there has been none or any medical/functional change since admission: - No change since preadmission screen. CONNIE attests patient continues to be appropriate for IRF: - Contiues to be appropriate. HISTORY AND PHYSICAL [id number] ANNE MARIE PAK,REYNOLD MONGE MD at 1343 CC: [id number] DICTATION DATE: 07/12/19 0851 STRAIGHT KNIFE CUTTER MACHINE: 07/12/19 1226 ADM IN [facility] [address] [place] [address]
--- NOTE | 2019-07-18 15:00 | NUR ---
COUMADIN HELD.PT STATED DID NOT FEEL COMFORTABLE IN TAKING IT.WAS UNABLE TO SEE URINE BEFORE IT WAS FLUSHED.HAT PLACED IN COMMODE.
--- NOTE | 2019-07-18 18:45 | NUR ---
TAKEN TO BATHROOM.URINE MUCH IMPROVED.LIGHT PINK TINGE TO IT .PT AGREE'S THAT IT HAS REALLY LIGHTENED UP.WILL CONTINUE TO MONITOR.
--- NOTE | 2019-07-18 20:00 | NUR ---
PATIENT RECEIVED SITTING UP IN BED WATCHING TV. ASSESSMENT & VITAL SIGNS DONE. BED LOW. CALL LIGHT WITHIN REACH. WILL CONTINUE TO MONITOR.
[2019-07-18 21:16] VITALS: BP 116/81
--- NOTE | 2019-07-18 21:30 | NUR ---
PATIENT LOVENOX HELD D/T BLOOD IN URINE. PATIENT AGREED TO HOLD LOVENOX. CALL LIGHT WITHIN REACH. WILL CONTINUE TO MONITOR.
--- NOTE | 2019-07-19 02:34 | NUR ---
PATIENT EYES CLOSED. RESPIRATIONS 18 & EVEN. BED LOW. CALL LIGHT WITHIN REACH. WILL CONTINUE TO MONITOR.
[2019-07-19 06:22] LABS: INR 1.88 (0.85-1.17)
[2019-07-19 06:32] LABS: BASOPHILS 0.3 % (0-2); HEMATOCRIT 37.5 % (36.0-48.0); HEMOGLOBIN 11.4 g/dL (12-16); IMMATURE GRANULOCYTES 0.2 % (0-5); LYMPHOCYTES 10.1 % (15-50); MCH 29.5 pg (26.0-34.0); MCHC 30.4 g/dL (31.0-37.0); MCV 97.2 fL (80.0-100.0); MEAN PLATELET VOLUME 9.8 fL (7.4-10.4); MONOCYTES 10.5 % (2-11); NEUTROPHILS 76.9 % (40-80); PLATELET COUNT 388 10x3/uL (130-400); RBC 3.86 10x6/uL (4.00-5.40); RDW 15.9 % (11.5-14.5); WBC 6.1 10x3/uL (4.8-10.8)
[2019-07-19 06:34] LABS: ANION GAP 9.4 mmol/L (8-16); CALCIUM 8.1 mg/dL (8.5-10.1); CARBON DIOXIDE 34.4 mmol/L (21.0-32.0); POTASSIUM - SERUM 4.8 mmol/L (3.5-5.1)
[2019-07-19 08:00] VITALS: BP 140/66
--- NOTE | 2019-07-19 08:00 | NUR ---
SHIFT ASSMT COMPLETED.
--- NOTE | 2019-07-19 10:36 | NUR ---
NUTRITION F/U PT TOLERATING REG DIET WITH GOOD INTAKE RECENT MEALS. ALSO CONSUMING ENSURE. +BM RECORDED 07/18/19. WILL CONTINUE TO HONOR FOOD PREFERENCES, PROVIDE ENSURE. RD FOLLOWING
[2019-07-19 14:53] LABS: APPEARANCE HAZY (CLEAR); COLOR RED (YELLOW)
[2019-07-19 14:56] LABS: BACTERIA FEW /hpf (NEGATIVE); BILIRUBIN NEGATIVE (NEGATIVE); GLUCOSE NEGATIVE (NEGATIVE); KETONE NEGATIVE (NEGATIVE); NITRITE NEGATIVE (NEGATIVE); PROTEIN 1+ mg/dL (NEGATIVE); RED CELLS - URINE >50 /hpf (0-5); SPECIFIC GRAVITY 1.015 (1.005-1.020); UROBILINOGEN NORMAL (NORMAL); WHITE CELLS - URINE 0-5 /hpf (NEGATIVE)
--- NOTE | 2019-07-19 16:00 | NUR ---
WILL CONT TO MONITOR.
[2019-07-19 19:48] VITALS: BP 133/67
--- NOTE | 2019-07-19 19:57 | NUR ---
PT NOTED SITTING IN HER RECLINER DOING A UPDRAFT TX. ALERT AND ORIENTED X 3. DENIES ACUTE PAIN OR DISCOMFORT AT THIS TIME. NO NEEDS VOICED. SUTURES TO FOREHEAD ARE CDI. NO DRAINAGE NOTED. O2 IS ON @ 2LPM PER NC. NO SOB NOTED. SR'S ARE UP X 2 WHILE IN BED. CALL LIGHT AND BEDSIDE TABLE ARE WITHIN EASY REACH.
--- NOTE | 2019-07-19 22:10 | NUR ---
PT RESTING IN BED WITH EYES OPEN. NO NEEDS VOICED.
--- NOTE | 2019-07-19 23:59 | NUR ---
I have reviewed this patient and I concur with the Shift Assessment completed by the Licensed Practical Nurse today this shift.
--- NOTE | 2019-07-20 03:32 | NUR ---
PT LYING IN BED EYES CLOSED RESTING QUIETLY. RR EVEN AND UNLABORED. CL IN REACH
--- NOTE | 2019-07-20 06:06 | NUR ---
PT RESTING IN BED WITH EYES CLOSED. AWOKE EASILY TO VERBAL STIMULI. TOLERATED AM MED WITHOUT DIFFICULTY. NO NEEDS VOICED.
[2019-07-20 07:01] LABS: BASOPHILS 0.4 % (0-2); EOSINOPHILS 1.1 % (0-7); HEMATOCRIT 36.6 % (36.0-48.0); HEMOGLOBIN 11.1 g/dL (12-16); IMMATURE GRANULOCYTES 0.4 % (0-5); LYMPHOCYTES 9.7 % (15-50); MCH 29.8 pg (26.0-34.0); MCHC 30.3 g/dL (31.0-37.0); MCV 98.1 fL (80.0-100.0); MEAN PLATELET VOLUME 9.6 fL (7.4-10.4); MONOCYTES 8.8 % (2-11); NEUTROPHILS 79.6 % (40-80); PLATELET COUNT 377 10x3/uL (130-400); RBC 3.73 10x6/uL (4.00-5.40); RDW 15.9 % (11.5-14.5); WBC 7.5 10x3/uL (4.8-10.8)
[2019-07-20 07:11] LABS: PROTIME 17.2 SECONDS (11.6-15.0)
[2019-07-20 07:13] LABS: CALCIUM 8.5 mg/dL (8.5-10.1); CARBON DIOXIDE 34.6 mmol/L (21.0-32.0); INR 1.46 (0.85-1.17); POTASSIUM - SERUM 4.6 mmol/L (3.5-5.1)
[2019-07-20 08:18] VITALS: BP 149/60
--- NOTE | 2019-07-20 18:08 | NUR ---
SITTING UP IN RECLINER WATCHING FOOTBALL GAME. SON IN ROOM VISITING WITH PT. SHE IS ANXIOUS TO HAVE FOREHEAD SUTURES REMOVED. SHE DENIES INCREASED SOB OR PAIN.
[2019-07-20 19:17] VITALS: BP 143/58
--- NOTE | 2019-07-20 19:17 | NUR ---
GREETED PATIENT AND INTRODUCED MYSELF HER NURSE. PATIENT IS SITTING IN CHAIR WATCHING TV. O2 AT 2L IN USE VIA NC. RESPIRATIONS EVEN. NO S/S OF DISTRESS. CALL LIGHT IN REACH. DENIES ANY FURTHER NEEDS AT THIS TIME. VITAL SIGNS OBTAINED.
--- NOTE | 2019-07-21 04:00 | NUR ---
PT. AWAKE AND ASSISTED TO BATHROOM. BACK TO BED AND REPOSITIONED FOR COMFORT. CALL LIGHT IN REACH. DENIES ANY FURTHER NEEDS AT THIS TIME.
[2019-07-21 07:06] LABS: INR 1.53 (0.85-1.17); PROTIME 17.8 SECONDS (11.6-15.0)
[2019-07-21 08:00] VITALS: BP 135/51
--- NOTE | 2019-07-21 08:38 | NUR ---
SITTING UP IN RECLINER FOR BREAKFAST. TRANSFERS WITH SBA TO MIN ASST FROM BED TO CHAIR USING WALKER. SON IN ROOM WITH PT. DENIES INCREASED SOB OR PAIN.
--- NOTE | 2019-07-21 19:03 | NUR ---
GREETED PATIENT AND INTRODUCED MYSELF HER NURSE. PATIENT IS SITTING IN CHAIR WATCHING TV. O2 AT 2L VIA NC IN USE. RESPIRATIONS EVEN. NO S/S DISTRESS. CALL LIGHT IN REACH. DENIES ANY FURTHER NEEDS AT THIS TIME.
[2019-07-21 19:15] VITALS: BP 141/62
--- NOTE | 2019-07-22 00:35 | NUR ---
PT. RESTING QUIETLY WITH EYES CLOSED. O2 AT 2L VIA NC IN USE. RESPIRATIONS EVEN. NO S/S OF DISTRESS. SR UP X 2. BED IN LOWEST POSITION. CALL LIGHT IN REACH.
--- NOTE | 2019-07-22 05:20 | NUR ---
PT. AWAKE AND ASSISTED TO BATHROOM USING WALKER. BACK TO BED AND REPOSITIONED FOR COMFORT. O2 AT 2L IN USE VIA NC. RESPIRATIONS EVEN. NO S/S OF DISTRESS. CALL LIGHT IN REACH.
[2019-07-22 07:47] VITALS: BP 147/60
[2019-07-22 09:35] LABS: INR 1.96 (0.85-1.17); PROTIME 21.7 SECONDS (11.6-15.0)
--- NOTE | 2019-07-22 14:53 | NUR ---
SITTING IN RECLINER IN ROOM. OXYGEN IN PLACE. IS ANXIOUS FOR SCAB TO PEEL OFF FORHEAD. ENCOURAGED HER NOT TO PICK AT IT. USES WALKER FOR AMBULATION ASST. CALL LIGHT IN REACH
--- NOTE | 2019-07-22 19:55 | NUR ---
PATIENT RECEIVED SITTING UP IN [facility] AT BEDSIDE, RECEIVING A MANICURE. VITAL SIGNS & ASSESSMENT DONE. NO C/O PAIN OR DISTRESS. CALL LIGTH WITHIN REACH. WILL CONTINUE TO MONITOR.
[2019-07-22 20:47] VITALS: BP 138/71
--- NOTE | 2019-07-23 02:43 | NUR ---
PATIENT EYES CLOSED. RESPIRATIONS 18 & EVEN. BED LOW. CALL LIGTH WITHIN REACH. WILL CONTINUE TO MONITOR.
--- NOTE | 2019-07-23 03:33 | NUR ---
I have reviewed this patient and I concur with the Shift Assessment completed by the Licensed Practical Nurse today this shift.
--- NOTE | 2019-07-23 08:00 | NUR ---
SHIFT ASSMT COMPLETED.PLAN FOR DISCHARGE TODAY.
[2019-07-23 08:22] VITALS: BP 136/66
--- NOTE | 2019-07-23 10:00 | NUR ---
PATIENT DISCHARGING TO [facility] VIA PRIVATE CAR WITH SON. NO HOME HEALTH OR DME NEEDED AT THIS TIME. [facility] WILL DELIVER PORTABLE O2 FOR PATIENT TO TRAVEL. AN APPOINTMENT WITH DR. SCHAFER WILL BE MADE WHEN PATIENT DISCHARGES FROM FACILITY. DR. HENDRICKS 07/25/19 @ 9:30, DR. BUSTILLO 08/14/19 @ 2:30, DR. EDMOND 08/08/19 @ 3:20. PATIENT CHOICE FORMS AND IMFM FORMS SIGNED, COPY GIVEN TO PATIENT AND FILED IN CHART. DISCHARGE INSTRUCTIONS REVIEWED WITH PATIENT AND SON, FAXED TO PCP AND FACILITY.
[2019-07-23] MEDS ORDERED: COUMADIN5 MG PO (11:07)
[2019-07-23] MEDS ORDERED: PERCOCET 10-321 EAC1 PO (11:07)
--- NOTE | 2019-07-23 12:00 | NUR ---
SITTING UP IN WC.
--- NOTE | 2019-07-23 13:38 | NUR ---
ECTOR APPROVED AND FAXED TO EFREN AT [facility].
--- NOTE | 2019-07-23 15:30 | NUR ---
DISCHARGED IN CARE OF SON.INSTRUCTIONS GIVEN.PORTABLE O2 TANK TAKEN AND IN USE AT 2L/NC.
== END 2019-07-23 15:20 | DRG 551 ==
LOC: D.REHAB 15:14
PROVIDERS: ADMIT Emergency Medicine; ATTEND Emergency Medicine
DX: S22.040A Wedge compression fracture of fourth thoracic vertebra, initial encounter for closed fracture (principal); J96.20 Acute and chronic respiratory failure, unspecified whether with hypoxia or hypercapnia; N39.0 Urinary tract infection, site not specified; J96.11 Chronic respiratory failure with hypoxia; E72.11 Homocystinuria; R55 Syncope and collapse; S00.03XA Contusion of scalp, initial encounter; J44.9 Chronic obstructive pulmonary disease, unspecified; K59.00 Constipation, unspecified; W19.XXXA Unspecified fall, initial encounter; R19.7 Diarrhea, unspecified

== ENCOUNTER 2021-04-10 19:17 | Emergency (ER) | payer MEDICARE ==
[~2021-04-10] VITALS: Ht 165.1 cm; Wt 90.0 kg
[2021-04-10 19:24] VITALS: Ht 165.1 cm; Wt 90.0 kg
[2021-04-10 19:49] LABS: BASOPHILS 0.8 % (0-2); EOSINOPHILS 1.9 % (0-7); HEMATOCRIT 38.1 % (36.0-48.0); LYMPHOCYTES 13.2 % (15-50); MCH 29.6 pg (26.0-34.0); MCHC 31.4 g/dL (31.0-37.0); MCV 94.1 fL (80.0-100.0); MEAN PLATELET VOLUME 7.5 fL (7.4-10.4); MONOCYTES 8.6 % (2-11); NEUTROPHILS 75.5 % (40-80); RBC 4.05 10x6/uL (4.00-5.40); RDW 14.2 % (11.5-14.5); WBC 5.6 10x3/uL (4.8-10.8)
[2021-04-10 19:57] LABS: CALC OSMOLALITY 294 mosm/kg (275-300); CHLORIDE - SERUM 108 mmol/L (98-107); CREATININE - SERUM 1.2 mg/dL (0.6-1.3); GLUCOSE 102 mg/dL (74-106); INR 2.66 (0.85-1.17); POTASSIUM - SERUM 3.9 mmol/L (3.5-5.1); PROTIME 26.3 SECONDS (11.6-15.0); SODIUM 146 mmol/L (136-145); UREA NITROGEN 23 mg/dL (7-18); eGFR NON AFRICAN AMERICAN 45 mL/min (90-120)
[2021-04-10 19:59] LABS: D-DIMER-QUANTITATIVE 0.27 ug/mLFEU (0.20-0.54)
[2021-04-10 20:05] LABS: PLATELET COUNT 226 10x3/uL (130-400)
[2021-04-10 20:12] LABS: ALBUMIN 3.1 g/dL (3.4-5.0); ALKALINE PHOSPHATASE 82 U/L (30-120); ALT (SGPT) 16 U/L (10-68); BILIRUBIN - TOTAL 0.19 mg/dL (0.2-1.3); CKMB 0.9 U/L (0.0-3.6); CREATINE KINASE 53 UL (21-215); MAGNESIUM - SERUM 1.9 mg/dL (1.8-2.4)
[2021-04-10 20:13] LABS: TROPONIN-I < 0.017 ng/mL (0.000-0.060)
[2021-04-10 23:04] VITALS: BP 142/83
== END 2021-04-10 22:14 | disposition home or self-care (01) ==
LOC: D.ER 19:17
PROVIDERS: Family Medicine
DX: I87.8 Other specified disorders of veins (principal); Z79.01 Long term (current) use of anticoagulants; J44.9 Chronic obstructive pulmonary disease, unspecified; M79.661 Pain in right lower leg